=== PATIENT | female | born 1945 | race African-American/Black ===

== ENCOUNTER 2019-02-18 10:30 | Emergency (ER) | payer MEDICARE ==
[2019-02-18 11:00] LABS: Basophils % (Auto) 0.2 % (0.0-1.8); Eosinophils % (Auto) 0.5 % (0.0-4.3); Hematocrit 39.7 % (30.3-42.9); Hemoglobin 13.5 gm/dl (10.1-14.3); Lymphocytes # (Auto) 1.3 K/mm3 (1.2-5.4); Lymphocytes % (Auto) 14.5 % (13.4-35.0); Mean Corpuscular HGB Conc 34 % (30-34); Mean Corpuscular Volume 84 fl (79-97); Monocytes % (Auto) 11.5 % (0.0-7.3); Platelet Count 219 K/mm3 (140-440); Red Blood Count 4.75 M/mm3 (3.65-5.03); Red Cell Distribution Width 13.1 % (13.2-15.2)
--- NOTE | 2019-02-18 11:09 | XRay Report ---
AP CHEST: HISTORY: Lightheadedness, dizziness No recent comparison. Heart size and pulmonary vessels are within normal limits. Normal mediastinal contour. Pulmonary markings at the lung bases are slightly prominent, left greater than right. Although this could represent chronic interstitial changes, mild bibasilar infiltrates or atelectasis could be considered. The upper lung zones are clear. No pleural effusion or pneumothorax. The bony structures are intact but mildly demineralized. IMPRESSION: Slightly prominent pulmonary markings at the lung bases as described above. Please correlate with the patient's clinical presentation.
[2019-02-18 11:23] LABS: Alanine Aminotransferase 12 units/L (7-56); BUN/Creatinine Ratio 16; Blood Urea Nitrogen 14 mg/dL (7-17); Calcium 9.3 mg/dL (8.4-10.2); Hemolysis Index 3
[2019-02-18] MEDS ORDERED: ANTIVERT PO ONE (11:25)
[2019-02-18] MEDS ORDERED: VALIUM PO ONE (12:00)
--- NOTE | 2019-02-18 12:09 | Emergency Department Report ---
ED General Adult HPI - General Chief complaint: Dizziness Stated complaint: DIZZY/VOMIT Time Seen by Provider: 02/18/19 10:59 Source: patient Mode of arrival: Wheelchair Limitations: Language Barrier - History of Present Illness Initial comments: Patient presents to the emergency department with her daughter for dizziness. Per the daughter the patient has a history of being dizzy and has been diagnosed with Mnire's disease. Last week the dizziness has become worse and they were at an imaging center today to get a CT of the head when the patient almost passed out from the dizziness. Patient was seen by her primary care physician last week. Patient denies any headache, weakness. She describes the dizziness as the room is spinning and relieve when not moving. At rest no dizziness. Patient's daughter translates for the patient. Patient denies chest pain, shortness of breath, or abdominal pain -: Gradual Consistency: constant Improves with: rest Worsens with: movement Associated Symptoms: denies other symptoms Treatments Prior to Arrival: none - Related Data Previous Rx's Medication Instructions Recorded Last Taken Type Meclizine [Antivert] 25 mg PO TID PRN #30 tablet 02/18/19 Unknown Rx Allergies Allergy/AdvReac Type Severity Reaction Status Date / Time No Known Allergies Allergy Unverified 11/11/14 21:00 ED Review of Systems ROS: Stated complaint: DIZZY/VOMIT Other details as noted in HPI Comment: All other systems reviewed and negative Constitutional: denies: chills, fever Eyes: denies: eye pain, eye discharge, vision change ENT: denies: ear pain, throat pain Respiratory: denies: cough, shortness of breath, wheezing Cardiovascular: denies: chest pain, palpitations Endocrine: no symptoms reported Gastrointestinal: denies: abdominal pain, nausea, diarrhea Genitourinary: denies: urgency, dysuria, discharge Musculoskeletal: denies: back pain, joint swelling, arthralgia Skin: denies: rash, lesions Neurological: vertigo. denies: headache, weakness, paresthesias Psychiatric: denies: anxiety, depression Hematological/Lymphatic: denies: easy bleeding, easy bruising ED Past Medical Hx - Past Medical History Hx Hypertension: Yes Hx Diabetes: Yes - Surgical History Past Surgical History?: No - Social History Smoking Status: Never Smoker Substance Use Type: None - Medications Home Medications: Home Medications Medication Instructions Recorded Confirmed Last Taken Type Meclizine [Antivert] 25 mg PO TID PRN #30 tablet 02/18/19 Unknown Rx ED Physical Exam - General Limitations: Language Barrier General appearance: alert, in no apparent distress - Head Head exam: Present: atraumatic, normocephalic - Eye Eye exam: Present: normal appearance, PERRL, EOMI - ENT ENT exam: Present: mucous membranes moist - Neck Neck exam: Present: normal inspection - Respiratory Respiratory exam: Present: normal lung sounds bilaterally. Absent: respiratory distress, wheezes, rales - Cardiovascular Cardiovascular Exam: Present: regular rate, normal rhythm. Absent: systolic murmur, diastolic murmur, rubs, gallop - GI/Abdominal GI/Abdominal exam: Present: soft, normal bowel sounds. Absent: distended, tenderness - Extremities Exam Extremities exam: Present: normal inspection - Back Exam Back exam: Present: normal inspection - Neurological Exam Neurological exam: Present: alert, oriented X3, CN II-XII intact, other (able to re-create symptoms with rapid eye and head movement). Absent: motor sensory deficit - Psychiatric Psychiatric exam: Present: normal affect, normal mood - Skin Skin exam: Present: warm, dry, intact, normal color. Absent: rash ED Course Vital Signs 02/18/19 02/18/19 02/18/19 10:59 11:15 11:30 Temperature 97.8 F Pulse Rate 74 84 88 Respiratory 19 21 24 Rate Blood Pressure 152/77 137/71 Blood Pressure 122/78 [Left] O2 Sat by Pulse 99 95 95 Oximetry 02/18/19 02/18/19 02/18/19 11:45 12:00 12:15 Temperature Pulse Rate 81 89 89 Respiratory 15 23 21 Rate Blood Pressure 137/71 141/70 141/70 Blood Pressure [Left] O2 Sat by Pulse 96 96 Oximetry 02/18/19 12:30 Temperature Pulse Rate 88 Respiratory 22 Rate Blood Pressure 138/72 Blood Pressure [Left] O2 Sat by Pulse 98 Oximetry ED Medical Decision Making - Lab Data Result diagrams: 02/18/19 10:55 02/18/19 10:50 Lab Results 02/18/19 02/18/19 Range/Units 10:50 10:55 WBC 8.9 (4.5-11.0) K/mm3 RBC 4.75 (3.65-5.03) M/mm3 Hgb 13.5 (10.1-14.3) gm/dl Hct 39.7 (30.3-42.9) % MCV 84 (79-97) fl MCH 28 (28-32) pg MCHC 34 (30-34) % RDW 13.1 L (13.2-15.2) % Plt Count 219 (140-440) K/mm3 Lymph % (Auto) 14.5 (13.4-35.0) % Wise % (Auto) 11.5 H (0.0-7.3) % Eos % (Auto) 0.5 (0.0-4.3) % Baso % (Auto) 0.2 (0.0-1.8) % Lymph # 1.3 (1.2-5.4) K/mm3 Wise # 1.0 H (0.0-0.8) K/mm3 Eos # 0.0 (0.0-0.4) K/mm3 Baso # 0.0 (0.0-0.1) K/mm3 Seg Neutrophils % 73.3 H (40.0-70.0) % Seg Neutrophils # 6.5 (1.8-7.7) K/mm3 Sodium 135 L (137-145) mmol/L Potassium 3.9 (3.6-5.0) mmol/L Chloride 96.5 L (98-107) mmol/L Carbon Dioxide 24 (22-30) mmol/L Anion Gap 18 mmol/L BUN 14 (7-17) mg/dL Creatinine 0.9 (0.7-1.2) mg/dL Estimated GFR > 60 ml/min BUN/Creatinine Ratio 16 % Glucose 252 H (65-100) mg/dL Calcium 9.3 (8.4-10.2) mg/dL Total Bilirubin 1.20 (0.1-1.2) mg/dL AST 15 (5-40) units/L ALT 12 (7-56) units/L Alkaline Phosphatase 76 (35-129) units/L Troponin T < 0.010 (0.00-0.029) ng/mL Total Protein 9.1 H (6.3-8.2) g/dL Albumin 4.0 (3.9-5) g/dL Albumin/Globulin Ratio 0.8 % - EKG Data -: EKG Interpreted by Ne EKG shows normal: sinus rhythm Rate: normal - Radiology Data Radiology results: report reviewed Critical care attestation.: If time is entered above; I have spent that time in minutes in the direct care of this critically ill patient, excluding procedure time. ED Disposition Clinical Impression: Vertigo Disposition: DC-01 TO HOME OR SELFCARE Is pt being admited?: No Does the pt Need Aspirin: No Condition: Stable Instructions: Vertigo (ED) Additional Instructions: return if worse Referrals: CAROL PIERCE MD [Primary Care Provider] - 3-5 Days Time of Disposition: 14:14
--- NOTE | 2019-02-18 14:05 | Cat Scan Report ---
PROCEDURE: CT HEAD/BRAIN WO CON TECHNIQUE: CT of the head was performed without intravenous contrast. HISTORY: dizziness COMPARISONS: None FINDINGS: The ventricles are normal in position and shape. The ventricles are nondilated. No intracranial hemorrhage, mass, mass effect or evidence of acute ischemic infarct. The basilar cisterns are patent. The paranasal sinuses are clear. The mastoid air cells are clear. The orbits are intact. The calvarium is intact. No extracranial soft tissue swelling. IMPRESSION: No acute intracranial abnormality. This document is electronically signed by Emmy Prater., February 18 2019 02:03:09 PM ET
[2019-02-18] MEDS ORDERED: ULTRAM PO ONE ×2 (14:12)
[2019-02-18 14:18] VITALS: BP 127/67
== END 2019-02-18 14:26 | disposition home or self-care (01) ==
LOC: ED 10:30
DX: R42 Dizziness and giddiness (principal); I10 Essential (primary) hypertension; E11.9 Type 2 diabetes mellitus without complications
CPT/HCPCS: 36415; 70450; 71045; 80053; 82962; 84484; 85025; 93005; 93010; 99284

== ENCOUNTER 2019-02-20 13:34 | Inpatient (IN) | payer MEDICARE ==
[2019-02-20] MEDS ORDERED: NACL 0.9% 1000 ML IV ONE (14:06)
[2019-02-20] MEDS ORDERED: TYLENOL PO STA (14:08)
--- NOTE | 2019-02-20 14:09 | Emergency Department Report ---
ED General Adult HPI - General Chief complaint: Weakness Stated complaint: WEAKNESS/FEVER Time Seen by Provider: 02/20/19 13:55 Source: patient, family, EMS (ems notes not available at time of chart dictation), RN notes reviewed Mode of arrival: Stretcher Limitations: Language Barrier (the patient requested that her daughter translate), Physical Limitation - History of Present Illness Initial comments: Primary care Dr.: Dr. Lauren This is a 73-year-old female, presenting to the emergency room, with her daughter, with a complaint of weakness, fever, coughs, malaise and fatigue. Patient reported that symptoms have been going on and off for about a week. She was recently seen here at this emergency room for dizziness and weakness, and had a fairly thorough evaluation. Her daughter reports the patient appears to clinically worsen within the past 24-48 hours. The patient complains of nontraumatic chronic left-sided shoulder pain. She makes no complaint of headache or neck pain, she denies abdominal pain, and she denies urinary symptoms. The patient is 2 weeks she described a qualitative nature of her symptoms, exacerbating or relieving factor As per her daughter, positive fever, weakness, cough, malaise and fatigue. -: Gradual Quality: other Consistency: other Improves with: other Worsens with: other Associated Symptoms: other - Related Data Previous Rx's Medication Instructions Recorded Last Taken Type Meclizine [Antivert] 25 mg PO TID PRN #30 tablet 02/18/19 Unknown Rx traMADol [Ultram] 50 mg PO Q6HR PRN #24 tablet 02/18/19 Unknown Rx Allergies Allergy/AdvReac Type Severity Reaction Status Date / Time No Known Allergies Allergy Unverified 11/11/14 21:00 ED Review of Systems ROS: Stated complaint: WEAKNESS/FEVER Other details as noted in HPI Comment: Unobtainable due to pts medical conditions Constitutional: fever, malaise, weakness ENT: congestion Respiratory: shortness of breath Cardiovascular: dyspnea on exertion Gastrointestinal: denies: nausea, vomiting Genitourinary: denies: dysuria Musculoskeletal: arthralgia, myalgia Skin: denies: lesions Neurological: weakness ED Past Medical Hx - Past Medical History Hx Hypertension: Yes Hx Diabetes: Yes - Social History Smoking Status: Never Smoker Substance Use Type: None - Medications Home Medications: Home Medications Medication Instructions Recorded Confirmed Last Taken Type Meclizine [Antivert] 25 mg PO TID PRN #30 tablet 02/18/19 Unknown Rx traMADol [Ultram] 50 mg PO Q6HR PRN #24 tablet 02/18/19 Unknown Rx ED Physical Exam - General Limitations: Language Barrier General appearance: alert, anxious, in distress - Head Head exam: Present: atraumatic, normocephalic - Eye Eye exam: Present: normal appearance, EOMI - ENT ENT exam: Present: mucous membranes dry - Neck Neck exam: Present: normal inspection, full ROM. Absent: tenderness, meningismus - Respiratory Respiratory exam: Present: respiratory distress, decreased breath sounds. Absent: wheezes, rales, rhonchi, stridor - Cardiovascular Cardiovascular Exam: Present: normal rhythm, tachycardia, normal heart sounds. Absent: systolic murmur, diastolic murmur, rubs, gallop - GI/Abdominal GI/Abdominal exam: Present: soft. Absent: distended, tenderness, guarding, rebound, rigid, pulsatile mass - Extremities Exam Extremities exam: Present: normal inspection, full ROM, other (2+ pulses noted in the bilateral upper, lower extremities. Compartments soft. No long bony tenderness. The pelvis is stable.). Absent: pedal edema, joint swelling, calf tenderness - Back Exam Back exam: Present: normal inspection, full ROM. Absent: tenderness, CVA tenderness (R), paraspinal tenderness, vertebral tenderness - Neurological Exam Neurological exam: Present: alert, other (Extraocular movements intact. Tongue midline. No facial droop. Facial sensation intact to light touch in the V1, V2, V3 distribution bilaterally. 5 and 5 strength in 4 extremities.. Sensation is intact to light touch in 4 extremities.). Absent: motor sensory deficit - Psychiatric Psychiatric exam: Present: anxious - Skin Skin exam: Present: warm, dry, intact, normal color. Absent: rash ED Course Vital Signs 02/20/19 14:20 Temperature 99.4 F Pulse Rate 100 H Respiratory 24 Rate Blood Pressure 133/72 [Left] O2 Sat by Pulse 87 Oximetry ED Medical Decision Making - Lab Data Result diagrams: 02/20/19 14:12 02/20/19 14:11 Vital Signs 02/20/19 14:20 Temperature 99.4 F Pulse Rate 100 H Respiratory 24 Rate Blood Pressure 133/72 [Left] O2 Sat by Pulse 87 Oximetry Lab Results 02/20/19 02/20/19 02/20/19 Range/Units 14:11 14:11 14:12 WBC 13.6 H (4.5-11.0) K/mm3 RBC 4.50 (3.65-5.03) M/mm3 Hgb 12.5 (10.1-14.3) gm/dl Hct 37.5 (30.3-42.9) % MCV 83 (79-97) fl MCH 28 (28-32) pg MCHC 33 (30-34) % RDW 12.8 L (13.2-15.2) % Plt Count 258 (140-440) K/mm3 Add Manual Diff Complete Total Counted 100 Seg Neuts % (Manual) 84.0 H (40.0-70.0) % Band Neutrophils % 0 % Lymphocytes % (Manual) 9.0 L (13.4-35.0) % Reactive Lymphs % (Man) 0 % Monocytes % (Manual) 7.0 (0.0-7.3) % Eosinophils % (Manual) 0 (0.0-4.3) % Basophils % (Manual) 0 (0.0-1.8) % Metamyelocytes % 0 % Myelocytes % 0 % Promyelocytes % 0 % Blast Cells % 0 % Nucleated RBC % Not Reportable Seg Neutrophils # Man 11.4 H (1.8-7.7) K/mm3 Band Neutrophils # 0.0 K/mm3 Lymphocytes # (Manual) 1.2 (1.2-5.4) K/mm3 Abs React Lymphs (Man) 0.0 K/mm3 Monocytes # (Manual) 1.0 H (0.0-0.8) K/mm3 Eosinophils # (Manual) 0.0 (0.0-0.4) K/mm3 Basophils # (Manual) 0.0 (0.0-0.1) K/mm3 Metamyelocytes # 0.0 K/mm3 Myelocytes # 0.0 K/mm3 Promyelocytes # 0.0 K/mm3 Blast Cells # 0.0 K/mm3 WBC Morphology Not Reportable Hypersegmented Neuts Not Reportable Hyposegmented Neuts Not Reportable Hypogranular Neuts Not Reportable Smudge Cells Not Reportable Toxic Granulation Not Reportable Toxic Vacuolation Not Reportable Dohle Bodies Not Reportable Pelger-Huet Anomaly Not Reportable Jenniffer Rods Not Reportable Platelet Estimate Appears normal Clumped Platelets Not Reportable Plt Clumps, EDTA Not Reportable Large Platelets Not Reportable Giant Platelets Not Reportable Platelet Satelliting Not Reportable Plt Morphology Comment Not Reportable RBC Morphology Not Reportable Dimorphic RBCs Not Reportable Polychromasia Rare Hypochromasia Not Reportable Poikilocytosis Not Reportable Anisocytosis Few Microcytosis Not Reportable Macrocytosis Not Reportable Spherocytes Not Reportable Pappenheimer Bodies Not Reportable Sickle Cells Not Reportable Target Cells Not Reportable Tear Drop Cells Not Reportable Ovalocytes Rare Helmet Cells Not Reportable [place] Bodies Not Reportable Gallion Rings Not Reportable [place] Cells Not Reportable Bite Cells Not Reportable Crenated Cell Not Reportable Elliptocytes Not Reportable Acanthocytes (Spur) Not Reportable Rouleaux Not Reportable Hemoglobin C Crystals Not Reportable Schistocytes Not Reportable Malaria parasites Not Reportable Raul Bodies Not Reportable Hem Pathologist Commnt No PT 15.2 H (12.2-14.9) Sec. INR 1.13 (0.87-1.13) APTT 35.1 (24.2-36.6) Sec. Sodium 132 L (137-145) mmol/L Potassium 4.1 (3.6-5.0) mmol/L Chloride 90.5 L (98-107) mmol/L Carbon Dioxide 26 (22-30) mmol/L Anion Gap 20 mmol/L BUN 18 H (7-17) mg/dL Creatinine 0.8 (0.7-1.2) mg/dL Estimated GFR > 60 ml/min BUN/Creatinine Ratio 23 % Glucose 250 H (65-100) mg/dL Lactic Acid (0.7-2.0) mmol/L Calcium 9.4 (8.4-10.2) mg/dL Magnesium 1.70 (1.7-2.3) mg/dL Total Bilirubin 1.70 H (0.1-1.2) mg/dL AST 13 (5-40) units/L ALT 8 (7-56) units/L Alkaline Phosphatase 77 (35-129) units/L Total Creatine Kinase 41 (30-135) units/L Troponin T < 0.010 (0.00-0.029) ng/mL Total Protein 9.1 H (6.3-8.2) g/dL Albumin 3.8 L (3.9-5) g/dL Albumin/Globulin Ratio 0.7 % 02/20/19 Range/Units 14:12 WBC (4.5-11.0) K/mm3 RBC (3.65-5.03) M/mm3 Hgb (10.1-14.3) gm/dl Hct (30.3-42.9) % MCV (79-97) fl MCH (28-32) pg MCHC (30-34) % RDW (13.2-15.2) % Plt Count (140-440) K/mm3 Add Manual Diff Total Counted Seg Neuts % (Manual) (40.0-70.0) % Band Neutrophils % % Lymphocytes % (Manual) (13.4-35.0) % Reactive Lymphs % (Man) % Monocytes % (Manual) (0.0-7.3) % Eosinophils % (Manual) (0.0-4.3) % Basophils % (Manual) (0.0-1.8) % Metamyelocytes % % Myelocytes % % Promyelocytes % % Blast Cells % % Nucleated RBC % Seg Neutrophils # Man (1.8-7.7) K/mm3 Band Neutrophils # K/mm3 Lymphocytes # (Manual) (1.2-5.4) K/mm3 Abs React Lymphs (Man) K/mm3 Monocytes # (Manual) (0.0-0.8) K/mm3 Eosinophils # (Manual) (0.0-0.4) K/mm3 Basophils # (Manual) (0.0-0.1) K/mm3 Metamyelocytes # K/mm3 Myelocytes # K/mm3 Promyelocytes # K/mm3 Blast Cells # K/mm3 WBC Morphology Hypersegmented Neuts Hyposegmented Neuts Hypogranular Neuts Smudge Cells Toxic Granulation Toxic Vacuolation Dohle Bodies Pelger-Huet Anomaly Jenniffer Rods Platelet Estimate Clumped Platelets Plt Clumps, EDTA Large Platelets Giant Platelets Platelet Satelliting Plt Morphology Comment RBC Morphology Dimorphic RBCs Polychromasia Hypochromasia Poikilocytosis Anisocytosis Microcytosis Macrocytosis Spherocytes Pappenheimer Bodies Sickle Cells Target Cells Tear Drop Cells Ovalocytes Helmet Cells [place] Bodies Gallion Rings [place] Cells Bite Cells Crenated Cell Elliptocytes Acanthocytes (Spur) Rouleaux Hemoglobin C Crystals Schistocytes Malaria parasites Raul Bodies Hem Pathologist Commnt PT (12.2-14.9) Sec. INR (0.87-1.13) APTT (24.2-36.6) Sec. Sodium (137-145) mmol/L Potassium (3.6-5.0) mmol/L Chloride (98-107) mmol/L Carbon Dioxide (22-30) mmol/L Anion Gap mmol/L BUN (7-17) mg/dL Creatinine (0.7-1.2) mg/dL Estimated GFR ml/min BUN/Creatinine Ratio % Glucose (65-100) mg/dL Lactic Acid 1.20 (0.7-2.0) mmol/L Calcium (8.4-10.2) mg/dL Magnesium (1.7-2.3) mg/dL Total Bilirubin (0.1-1.2) mg/dL AST (5-40) units/L ALT (7-56) units/L Alkaline Phosphatase (35-129) units/L Total Creatine Kinase (30-135) units/L Troponin T (0.00-0.029) ng/mL Total Protein (6.3-8.2) g/dL Albumin (3.9-5) g/dL Albumin/Globulin Ratio % - Radiology Data Radiology results: report reviewed, image reviewed Print Report Referring Physician: SHAKIR LANCE Patient Name: SHERITA LOWE Date of : 1945 Sex: Female Report Date: 2019-02-20 Report Status: Finalized Findings [facility] [address] [place] [address] XRay Report Signed Patient: SHERITA LOWE MR#: [id number] : 1945 Acct:[id number] Age/Sex: 73 / F ADM Date: 02/20/19 Loc: ED Attending Dr: Ordering Physician: SHAKIR LANCE MD Date of Service: 02/20/19 Procedure(s): XR chest 1V ap Accession Number(s): [id number] cc: SHAKIR LANCE MD Fluoro Time In Minutes: Single view chest: Compared to 02/18/19. History: Fever. Hypoxia. Findings: Normal cardiomediastinal silhouette. Trachea is midline. Ill-defined linear density retrocardiac region left lower lobe. Very faint ill-defined density right perihilar area. Not seen in the previous study. Impression: Ill-defined densities probably suggestive of pneumonitis, segmental or discoid atelectasis. If clinically indicated CT scan may be advised. Transcribed By: PTP Dictated By: ANNA PRIDE MD Electronically Authenticated By: ANNA PRIDE MD Signed Date/Time: 02/20/19 0020 - Medical Decision Making Differential diagnosis, including not limited to: Pneumonia, bacteremia, urinary tract infection, viremia Assessment and plan: 73-year-old female, ill-appearing, tachycardic, hypoxic, with leukocytosis, concerning for community acquired pneumonia. Patient resusc itated according to the sepsis pathway. Looking clinically improved on 2 L of nasal cannula oxygen, IV fluids and supportive care. Patient will be admitted to the medical service, under the care of Dr. Kolb, after we have discussed the case. Extensive discussion had with daughter regarding goals of care and advanced directives, currently, patient appears to be full code. Critical care attestation.: If time is entered above; I have spent that time in minutes in the direct care of this critically ill patient, excluding procedure time. ED Disposition Clinical Impression: Systemic inflammatory response syndrome (SIRS) Disposition: DC- OP ADMIT IP TO THIS HOSP Is pt being admited?: Yes Does the pt Need Aspirin: No Condition: Fair
[2019-02-20 14:31] LABS: Hematocrit 37.5 % (30.3-42.9); Hemoglobin 12.5 gm/dl (10.1-14.3); Mean Corpuscular HGB Conc 33 % (30-34); Mean Corpuscular Volume 83 fl (79-97); Platelet Count 258 K/mm3 (140-440); Red Cell Distribution Width 12.8 % (13.2-15.2)
[2019-02-20 14:52] LABS: INR 1.13 (0.87-1.13)
[2019-02-20 14:53] LABS: Partial Thromboplastin Time 35.1 Sec. (24.2-36.6)
[2019-02-20 14:58] LABS: Alanine Aminotransferase 8 units/L (7-56); Albumin 3.8 g/dL (3.9-5); BUN/Creatinine Ratio 23; Blood Urea Nitrogen 18 mg/dL (7-17); Calcium 9.4 mg/dL (8.4-10.2); Hemolysis Index 0
--- NOTE | 2019-02-20 15:01 | XRay Report ---
Single view chest: Compared to 02/18/19. History: Fever. Hypoxia. Findings: Normal cardiomediastinal silhouette. Trachea is midline. Ill-defined linear density retrocardiac region left lower lobe. Very faint ill-defined density right perihilar area. Not seen in the previous study. Impression: Ill-defined densities probably suggestive of pneumonitis, segmental or discoid atelectasis. If clinically indicated CT scan may be advised.
[2019-02-20] MEDS: ZITHROMAX 500 MG in NACL 0.9% 250ML 250 ML IV SCH (15:10)
--- NOTE | 2019-02-20 15:14 | History and Physical Report ---
History of Present Illness Chief complaint: He is very weak, and has fever History of present illness: 73 YO Male with HTN, DM, Severe Malnutrition presents to ED for evaluation. Pt has difficulty speaking Peruvian, and wishes to have his daughter translate for his. As per daughter, the patient has experienced progressive weakness, fever, over the past week with progressive symptoms over the same time frame. In addit ion, the patient requires increased assistance with activities of daily living. EMS notified, and upon arrival the patient was found to be in distres and transported to [facility]. Pt seen and evaluated in ED and found to have Left Lower Lobe Pneumonia, SIRS, Hyponatremia, Severe Malnutritions, and clinical findings consistent with Multiple Myeloma. Pt admitted to [facility] and initiated on Pneumonia protocol. No prior admissions for review. All listed medication reviewed at time of admission. No reports of Trauma, BRBPR, Productive cough, unilateral leg swelling, Skin Rash, Recent foreign travel, Syncope, Vertigo, or known ill contacts. Primary care Dr.: Dr. Lauren Past History Past Medical History: diabetes, hypertension Past Surgical History: No surgical history, Other (reviewed) Social history: . denies: smoking, alcohol abuse, prescription drug abuse Family history: diabetes, hypertension Medications and Allergies Allergies Allergy/AdvReac Type Severity Reaction Status Date / Time No Known Allergies Allergy Unverified 11/11/14 21:00 Home Medications Medication Instructions Recorded Confirmed Last Taken Type Meclizine [Antivert] 25 mg PO TID PRN #30 tablet 02/18/19 02/20/19 Unknown Rx Amlodipine Besylate [Norvasc] 2.5 mg PO DAILY 02/20/19 02/20/19 Unknown History Ramipril 10 mg PO DAILY 02/20/19 02/20/19 02/19/19 History Sitagliptin Phosphate [Januvia] 50 mg PO DAILY 02/20/19 02/20/19 02/19/19 History Triamter/Hctz 37.5-25 mg 1 tab PO QAM 02/20/19 02/20/19 Unknown History [Maxzide-25] metFORMIN [Glucophage] 500 mg PO BID 02/20/19 02/20/19 02/19/19 History Active Meds: Active Medications Azithromycin 500 mg/ Sodium (Chloride) 250 mls @ 250 mls/hr IV Q24HR CHICHO; Protocol Ceftriaxone Sodium (Rocephin/Ns 2 Gm/100 Ml) 2 gm in 100 mls @ 200 mls/hr IV Q24HR CHICHO; Protocol Review of Systems Constitutional: fever, fatigue, weakness, lethargy, no weight gain Ears, nose, mouth and throat: no ear pain, no ear discharge, no tinnitis, no decreased hearing, no nose pain, no nasal congestion Breasts: no change in shape, no mass Cardiovascular: no chest pain, no orthopnea, no palpitations, no rapid/irregular heart beat, no edema, no syncope Respiratory: no cough, no cough with sputum, no excessive sputum, no hemoptysis, no shortness of breath Gastrointestinal: no abdominal pain, no nausea, no vomiting, no diarrhea, no constipation Genitourinary Female: no pelvic pain, no flank pain, no menorrhagia, no urinary frequency Rectal: no pain, no incontinence, no bleeding Musculoskeletal: no neck stiffness, no neck pain, no shooting arm pain, no arm numbness/tingling, no low back pain, no shooting leg pain Integumentary: no rash, no pruritis, no redness, no sores, no wounds, no jaundice Neurological: no transient paralysis, no paralysis, no weakness, no parathesias, no numbness, no tingling Psychiatric: no anxiety, no memory loss, no change in sleep habits, no sleep disturbances, no insomnia Endocrine: no cold intolerance, no heat intolerance, no polyphagia, no excessive thirst Hematologic/Lymphatic: no easy bruising, no easy bleeding, no lymphadenopathy, no lymphedema Allergic/Immunologic: no urticaria, no persistent infections, no anaphylaxis Exam - Constitutional Vitals: Temp Pulse Resp BP Pulse Ox 99.4 F 100 H 24 133/72 87 02/20/19 14:20 02/20/19 14:20 02/20/19 14:20 02/20/19 14:20 02/20/19 14:20 General appearance: Present: mild distress, cachectic - EENT Eyes: Present: PERRL ENT: hearing intact, clear oral mucosa - Neck Neck: Present: supple, normal ROM - Respiratory Respiratory effort: normal Respiratory: bilateral: diminished, rales - Cardiovascular Heart Sounds: Present: S1 & S2. Absent: rub, click - Extremities Extremities: pulses symmetrical, No edema Peripheral Pulses: within normal limits - Abdominal General gastrointestinal: Present: soft, non-tender, non-distended, normal bowel sounds Female genitourinary: Present: normal - Integumentary Integumentary: Present: clear, warm, dry - Musculoskeletal Musculoskeletal: generalized weakness - Psychiatric Psychiatric: appropriate mood/affect, intact judgment & insight - Neurologic Neurologic: CNII-XII intact, moves all extremities, no gait normal Results - Labs CBC & Chem 7: 02/20/19 14:12 02/20/19 14:11 Labs: Abnormal lab results 02/20/19 02/20/19 02/20/19 Range/Units 14:11 14:11 14:12 WBC 13.6 H (4.5-11.0) K/mm3 RDW 12.8 L (13.2-15.2) % PT 15.2 H (12.2-14.9) Sec. Sodium 132 L (137-145) mmol/L Chloride 90.5 L (98-107) mmol/L BUN 18 H (7-17) mg/dL Glucose 250 H (65-100) mg/dL Total Bilirubin 1.70 H (0.1-1.2) mg/dL Total Protein 9.1 H (6.3-8.2) g/dL Albumin 3.8 L (3.9-5) g/dL Assessment and Plan - Patient Problems (1) Pneumonia Current Visit: Yes Status: Acute (2) Hyponatremia syndrome Current Visit: Yes Status: Acute Plan to address problem: IVF resuscitation, monitor UOP q shift, repeat BMP (3) Severe malnutrition Current Visit: Yes Status: Acute Plan to address problem: Encourage increased protein intake, dietary supplementation (4) Multiple myeloma Current Visit: Yes Status: Suspected Plan to address problem: Serum/Urine Protein Electrophoresis, Calculate Gamma Gap, B2 Microglobulin, Immunofixation, (5) Systemic inflammatory response syndrome (SIRS) Current Visit: Yes Status: Acute Plan to address problem: IV antibiotic therapy, Urinalysis, chest x ray, CBC, BMP, supportive care. (6) Elevated liver function tests Current Visit: Yes Status: Acute Plan to address problem: repeat CMP, fractionated bilirubin (7) DVT prophylaxis Current Visit: Yes Status: Acute Plan to address problem: SCD to BLE while in bed.
[2019-02-20 15:19] LABS: Basophils % (Manual) 0 % (0.0-1.8); Eosinophils % (Manual) 0 % (0.0-4.3); Total Cells Counted 100
[2019-02-20 15:20] LABS: Anisocytosis Few; Ovalocytes Rare
[2019-02-20] MEDS ORDERED: SODIUM CHLORIDE FLUSH SYRINGE 10 ML IV PRN (16:02)
[2019-02-20] MEDS ORDERED: ZOFRAN IV PRN (16:02)
[2019-02-20] MEDS ORDERED: ANTIVERT PO PRN (16:04)
[2019-02-20] MEDS: ROCEPHIN/NS 2 GM/100 ML 2 GM/100 ML BAG IV SCH (17:15)
[2019-02-20 18:51] LABS: Bilirubin,Urine NEG (Negative); Blood,Urine SM (Negative); Color,Urine Yellow (Yellow); Hyaline Casts,Urine 1 /LPF; Protein,Urine <15 mg/dL mg/dL (Negative)
[2019-02-20] MEDS: NACL 0.45% 1000 ML 1,000 ML IV SCH (20:13)
[2019-02-20] MEDS ORDERED: D50W (25GM) Syringe IV PRN (20:37)
[2019-02-20] MEDS: PEPCID PO SCH (22:09)
[2019-02-20] MEDS: HumaLOG SUB-Q SCH (22:10)
[2019-02-20] MEDS: SODIUM CHLORIDE FLUSH SYRINGE 10 ML IV SCH (22:11)
[2019-02-20 22:21] LABS: Bilirubin,Direct 0.3 mg/dL (0-0.2)
[2019-02-20] MEDS: TYLENOL PO PRN (23:11)
[2019-02-21 05:14] LABS: Basophils % (Auto) 0.1 % (0.0-1.8); Eosinophils # (Auto) 0.1 K/mm3 (0.0-0.4); Hematocrit 35.2 % (30.3-42.9); Hemoglobin 11.6 gm/dl (10.1-14.3); Lymphocytes # (Auto) 1.3 K/mm3 (1.2-5.4); Lymphocytes % (Auto) 12.2 % (13.4-35.0); Mean Corpuscular HGB Conc 33 % (30-34); Mean Corpuscular Volume 85 fl (79-97); Monocytes % (Auto) 9.2 % (0.0-7.3); Platelet Count 217 K/mm3 (140-440); Red Blood Count 4.16 M/mm3 (3.65-5.03); Red Cell Distribution Width 13.1 % (13.2-15.2)
[2019-02-21 05:33] LABS: BUN/Creatinine Ratio 23; Blood Urea Nitrogen 16 mg/dL (7-17); Calcium 8.8 mg/dL (8.4-10.2); Hemolysis Index 13
[2019-02-21] MEDS ORDERED: NON-FORMULARY (Ramipril [Ramipril] 10 MG) PO SCH (10:00)
[2019-02-21] MEDS: ROCEPHIN/NS 2 GM/100 ML 2 GM/100 ML BAG IV SCH (10:19)
[2019-02-21] MEDS: NORVASC PO SCH (10:20)
[2019-02-21] MEDS: PEPCID PO SCH (10:21)
[2019-02-21] MEDS: MAXZIDE-25 PO SCH (10:24)
[2019-02-21] MEDS: ZESTRIL PO SCH (10:25)
[2019-02-21] MEDS: SODIUM CHLORIDE FLUSH SYRINGE 10 ML IV SCH (10:26)
[2019-02-21] MEDS: ZITHROMAX 500 MG in NACL 0.9% 250ML 250 ML IV SCH (10:30)
[2019-02-21] MEDS: HumaLOG SUB-Q SCH ×3 (10:32→17:01)
--- NOTE | 2019-02-21 15:35 | Progress Note ---
Assessment and Plan Assessment and plan: 73f c/o left shoulder pain x2 weeks, denies trauma -pw weakness, decrease po, and cough x3 days Diagnosis CAP/ sepsis discoid atelectasis seen on cxr Left shoulder pain MM Moderate malnutrition Transaminitis Plan IV abx, sepsis protocol -cxr may be scarring or atelectasis?, obtain CT chest Obtain Left shoulder xray DVT ppx lovenox History Interval history: Review of systems Constitutional: No fevers, complaining of generalized weakness and malaise CVS: No chest pain, no orthopnea, no pedal edema GI: No abdominal pain, no diarrhea, no vomiting, no constipation Respiratory: Complaining of cough, nonproductive Hospitalist Physical - Physical exam Narrative exam: General.: Appears ill, mild distress, nontoxic HEENT: Moist mucous membranes, extraocular muscles intact, no lymphadenopathy Neck: supple Cardiac: S1-S2 heard Lungs: Rhonchi heard Abdomen: soft , nontender, nondistended, bowel sounds positive Extremities: no edema clubbing or cyanosis Skin: no rash or lesions Neurologic: no gross focal deficits Psych: calm, and cooperative - Constitutional Vitals: Temp Pulse Resp BP Pulse Ox 97.9 F 75 20 138/63 97 02/21/19 07:23 02/21/19 07:23 02/21/19 07:23 02/21/19 10:25 02/21/19 07:23 General appearance: Present: mild distress, cachectic Results - Labs CBC & Chem 7: 02/21/19 04:45 02/21/19 04:45 Labs: Laboratory Last Values WBC 10.5 K/mm3 (4.5-11.0) 02/21/19 04:45 RBC 4.16 M/mm3 (3.65-5.03) 02/21/19 04:45 Hgb 11.6 gm/dl (10.1-14.3) 02/21/19 04:45 Hct 35.2 % (30.3-42.9) 02/21/19 04:45 MCV 85 fl (79-97) 02/21/19 04:45 MCH 28 pg (28-32) 02/21/19 04:45 MCHC 33 % (30-34) 02/21/19 04:45 RDW 13.1 % (13.2-15.2) L 02/21/19 04:45 Plt Count 217 K/mm3 (140-440) 02/21/19 04:45 Lymph % (Auto) 12.2 % (13.4-35.0) L 02/21/19 04:45 [place] % (Auto) 9.2 % (0.0-7.3) H 02/21/19 04:45 Eos % (Auto) 1.0 % (0.0-4.3) 02/21/19 04:45 Baso % (Auto) 0.1 % (0.0-1.8) 02/21/19 04:45 Lymph # 1.3 K/mm3 (1.2-5.4) 02/21/19 04:45 [place] # 1.0 K/mm3 (0.0-0.8) H 02/21/19 04:45 Eos # 0.1 K/mm3 (0.0-0.4) 02/21/19 04:45 Baso # 0.0 K/mm3 (0.0-0.1) 02/21/19 04:45 Add Manual Diff Complete 02/20/19 14:12 Total Counted 100 02/20/19 14:12 Seg Neutrophils % 77.5 % (40.0-70.0) H 02/21/19 04:45 Seg Neuts % (Manual) 84.0 % (40.0-70.0) H 02/20/19 14:12 Band Neutrophils % 0 % 02/20/19 14:12 Lymphocytes % (Manual) 9.0 % (13.4-35.0) L 02/20/19 14:12 Reactive Lymphs % (Man) 0 % 02/20/19 14:12 Monocytes % (Manual) 7.0 % (0.0-7.3) 02/20/19 14:12 Eosinophils % (Manual) 0 % (0.0-4.3) 02/20/19 14:12 Basophils % (Manual) 0 % (0.0-1.8) 02/20/19 14:12 Metamyelocytes % 0 % 02/20/19 14:12 Myelocytes % 0 % 02/20/19 14:12 Promyelocytes % 0 % 02/20/19 14:12 Blast Cells % 0 % 02/20/19 14:12 Nucleated RBC % Not Reportable 02/20/19 14:12 Seg Neutrophils # 8.1 K/mm3 (1.8-7.7) H 02/21/19 04:45 Seg Neutrophils # Man 11.4 K/mm3 (1.8-7.7) H 02/20/19 14:12 Band Neutrophils # 0.0 K/mm3 02/20/19 14:12 Lymphocytes # (Manual) 1.2 K/mm3 (1.2-5.4) 02/20/19 14:12 Abs React Lymphs (Man) 0.0 K/mm3 02/20/19 14:12 Monocytes # (Manual) 1.0 K/mm3 (0.0-0.8) H 02/20/19 14:12 Eosinophils # (Manual) 0.0 K/mm3 (0.0-0.4) 02/20/19 14:12 Basophils # (Manual) 0.0 K/mm3 (0.0-0.1) 02/20/19 14:12 Metamyelocytes # 0.0 K/mm3 02/20/19 14:12 Myelocytes # 0.0 K/mm3 02/20/19 14:12 Promyelocytes # 0.0 K/mm3 02/20/19 14:12 Blast Cells # 0.0 K/mm3 02/20/19 14:12 WBC Morphology Not Reportable 02/20/19 14:12 Hypersegmented Neuts Not Reportable 02/20/19 14:12 Hyposegmented Neuts Not Reportable 02/20/19 14:12 Hypogranular Neuts Not Reportable 02/20/19 14:12 Smudge Cells Not Reportable 02/20/19 14:12 Toxic Granulation Not Reportable 02/20/19 14:12 Toxic Vacuolation Not Reportable 02/20/19 14:12 Dohle Bodies Not Reportable 02/20/19 14:12 Pelger-Huet Anomaly Not Reportable 02/20/19 14:12 Jenniffer Rods Not Reportable 02/20/19 14:12 Platelet Estimate Appears normal 02/20/19 14:12 Clumped Platelets Not Reportable 02/20/19 14:12 Plt Clumps, EDTA Not Reportable 02/20/19 14:12 Large Platelets Not Reportable 02/20/19 14:12 Giant Platelets Not Reportable 02/20/19 14:12 Platelet Satelliting Not Reportable 02/20/19 14:12 Plt Morphology Comment Not Reportable 02/20/19 14:12 RBC Morphology Not Reportable 02/20/19 14:12 Dimorphic RBCs Not Reportable 02/20/19 14:12 Polychromasia Rare 02/20/19 14:12 Hypochromasia Not Reportable 02/20/19 14:12 Poikilocytosis Not Reportable 02/20/19 14:12 Anisocytosis Few 02/20/19 14:12 Microcytosis Not Reportable 02/20/19 14:12 Macrocytosis Not Reportable 02/20/19 14:12 Spherocytes Not Reportable 02/20/19 14:12 Pappenheimer Bodies Not Reportable 02/20/19 14:12 Sickle Cells Not Reportable 02/20/19 14:12 Target Cells Not Reportable 02/20/19 14:12 Tear Drop Cells Not Reportable 02/20/19 14:12 Ovalocytes Rare 02/20/19 14:12 Helmet Cells Not Reportable 02/20/19 14:12 [place] Bodies Not Reportable 02/20/19 14:12 [place] Rings Not Reportable 02/20/19 14:12 Rosina Cells Not Reportable 02/20/19 14:12 Bite Cells Not Reportable 02/20/19 14:12 Crenated Cell Not Reportable 02/20/19 14:12 Elliptocytes Not Reportable 02/20/19 14:12 Acanthocytes (Spur) Not Reportable 02/20/19 14:12 Rouleaux Not Reportable 02/20/19 14:12 Hemoglobin C Crystals Not Reportable 02/20/19 14:12 Schistocytes Not Reportable 02/20/19 14:12 Malaria parasites Not Reportable 02/20/19 14:12 Raul Bodies Not Reportable 02/20/19 14:12 Hem Pathologist Commnt No 02/20/19 14:12 PT 15.2 Sec. (12.2-14.9) H 02/20/19 14:11 INR 1.13 (0.87-1.13) 02/20/19 14:11 APTT 35.1 Sec. (24.2-36.6) 02/20/19 14:11 Sodium 139 mmol/L (137-145) D 02/21/19 04:45 Potassium 3.7 mmol/L (3.6-5.0) 02/21/19 04:45 Chloride 102.3 mmol/L (98-107) 02/21/19 04:45 Carbon Dioxide 24 mmol/L (22-30) 02/21/19 04:45 Anion Gap 16 mmol/L 02/21/19 04:45 BUN 16 mg/dL (7-17) 02/21/19 04:45 Creatinine 0.7 mg/dL (0.7-1.2) 02/21/19 04:45 Estimated GFR > 60 ml/min 02/21/19 04:45 BUN/Creatinine Ratio 23 % 02/21/19 04:45 Glucose 154 mg/dL (65-100) H 02/21/19 04:45 POC Glucose 131 (70-105) H 02/21/19 11:41 Lactic Acid 1.20 mmol/L (0.7-2.0) 02/20/19 21:13 Calcium 8.8 mg/dL (8.4-10.2) 02/21/19 04:45 Magnesium 1.70 mg/dL (1.7-2.3) 02/20/19 14:11 Total Bilirubin 0.90 mg/dL (0.1-1.2) 02/20/19 21:13 Direct Bilirubin 0.3 mg/dL (0-0.2) H 02/20/19 21:13 Indirect Bilirubin 0.6 mg/dL 02/20/19 21:13 AST 13 units/L (5-40) 02/20/19 14:11 ALT 8 units/L (7-56) 02/20/19 14:11 Alkaline Phosphatase 77 units/L (35-129) 02/20/19 14:11 Total Creatine Kinase 41 units/L (30-135) 02/20/19 14:11 Troponin T < 0.010 ng/mL (0.00-0.029) 02/20/19 14:11 Total Protein 9.1 g/dL (6.3-8.2) H 02/20/19 14:11 Albumin 3.8 g/dL (3.9-5) L 02/20/19 14:11 Albumin/Globulin Ratio 0.7 % 02/20/19 14:11 Urine Color Yellow (Yellow) 02/20/19 17:53 Urine Turbidity Slightly-cloudy (Clear) 02/20/19 17:53 Urine pH 6.0 (5.0-7.0) 02/20/19 17:53 Ur Specific [place] 1.006 (1.003-1.030) 02/20/19 17:53 Urine Protein <15 mg/dl mg/dL (Negative) 02/20/19 17:53 Urine Glucose (UA) 50 mg/dL (Negative) 02/20/19 17:53 Urine Ketones Neg mg/dL (Negative) 02/20/19 17:53 Urine Blood Sm (Negative) 02/20/19 17:53 Urine Nitrite Neg (Negative) 02/20/19 17:53 Urine Bilirubin Neg (Negative) 02/20/19 17:53 Urine Urobilinogen 2.0 mg/dL (<2.0) 02/20/19 17:53 Ur Leukocyte Esterase Sm (Negative) 02/20/19 17:53 Urine WBC (Auto) 5.0 /HPF (0.0-6.0) 02/20/19 17:53 Urine RBC (Auto) 1.0 /HPF (0.0-6.0) 02/20/19 17:53 U Epithel Cells (Auto) 2.0 /HPF (0-13.0) 02/20/19 17:53 Hyaline Casts 1 /LPF 02/20/19 17:53 Active Medications - Current Medications Current Medications: Generic Name Dose Route Start Last Admin Trade Name Freq PRN Reason Stop Dose Admin Acetaminophen 650 mg 02/20/19 16:02 02/20/19 23:11 Tylenol PO 650 mg Q4H PRN Administration Pain MILD(1-3)/Fever >100.5/ALLEN Amlodipine Besylate 2.5 mg 02/21/19 10:00 02/21/19 10:20 Norvasc PO 2.5 mg QDAY CHICHO Administration Azithromycin 500 mg 02/22/19 10:00 Zithromax PO 02/24/19 10:01 QDAY CH[facility]HO Dextrose 50 ml 02/20/19 20:37 D50w (25gm) Syringe IV PRN PRN Hypoglycemia Famotidine 10 mg 02/20/19 22:00 02/21/19 10:21 Pepcid PO 10 mg BID CH[facility]HO Administration Ceftriaxone Sodium 2 gm in 100 mls @ 200 mls/hr 02/20/19 15:00 02/21/19 10:19 Rocephin/Ns 2 Gm/100 Ml IV 200 mls/hr Q24HR [facility] Administration Protocol Sodium Chloride 1,000 mls @ 42 mls/hr 02/20/19 17:00 02/20/19 20:13 Nacl 0.45% 1000 Ml IV 42 mls/hr DIRECT [facility] Administration Insulin Human Lispro 0 unit 02/20/19 22:00 02/21/19 10:32 Humalog SUB-Q Not Given ACHS CH[facility]HO Protocol Lisinopril 20 mg 02/21/19 10:00 02/21/19 10:25 Zestril PO 20 mg QDAY CH[facility]HO Administration Meclizine HCl 25 mg 02/20/19 16:04 Antivert PO TID PRN Vertigo Ondansetron HCl 4 mg 02/20/19 16:02 Zofran IV Q8H PRN Nausea And Vomiting Sodium Chloride 10 ml 02/20/19 22:00 02/21/19 10:26 Sodium Chloride Flush Syringe 10 Ml IV 10 ml BID CH[facility]HO Administration Sodium Chloride 10 ml 02/20/19 16:02 Sodium Chloride Flush Syringe 10 Ml IV PRN PRN LINE FLUSH Triamterene/HCTZ 1 each 02/21/19 10:00 02/21/19 10:24 Maxzide-25 PO 1 each QAM CH[facility]HO Administration Nutrition/Malnutrition Assess - Dietary Evaluation Nutrition/Malnutrition Findings: Nutrition Notes Start: 02/21/19 14:17 Freq: Status: Active Protocol: Document 02/21/19 14:17 RM (Rec: 02/21/19 14:37 RM [id number]) Nutrition Notes Need for Assessment generated from: Low BMI Initial or Follow up Assessment Current Diagnosis Diabetes,Hypertension Other Pertinent Diagnosis SIRS, Pneu Current Diet Cardiac Labs/Tests Reviewed Pertinent Medications Reviewed Height 5 ft 2 in Weight 45.359 kg Usual Body Weight 45.45 kg [place] Body Weight (kg) 50.00 BMI 18.3 Subjective/Other Information Screened for low BMI. Pt only speaks a little Kinyarwanda. Daughter spoke on behalf of pt. 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 Stated pt also had some soup today. Admitted to pt poor appetite and nausea but has vomiting only once. Declined regular ONS d/t similarity to milk. Admitted pt constipation. Stated UBW has been 100 lbs for years. Noted slight temporal wasting. 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 No Is Patient Ambulatory and/or Out of Bed No REE-([facility]-confined to bed) 1094.772 Kcal/Kg value to use for calculation 31 Approximate Energy Requirements Using 1406 kcal/Kg Calculation Used for Recommendations Kcal/kg Additional Notes Protein Needs: 54-68g (1.2-1. 5g/kg) Fluid Needs: 1 ml/kcal Nutrition Intervention Change Diet Order: Cardiac/Consistent CHO Add Supplement/Snack (indicate name/kcal Ensure Clear 1 daily /protein ) Provides kCal: 240 Provides Protein (gm) 8 Goal #1 Meet at least 75% of calorie and protein needs via PO and ONS intakes Anticipated Discharge Needs: Cardiac/Consistent CHO Follow-Up By: 02/24/19 Additional Comments Follow for PO and ONS intakes
[2019-02-21] MEDS: TYLENOL PO PRN (17:09)
[2019-02-21] MEDS: NACL 0.45% 1000 ML 1,000 ML IV SCH (18:26)
[2019-02-22] MEDS: HumaLOG SUB-Q SCH ×5 (00:11→22:04)
[2019-02-22] MEDS: SODIUM CHLORIDE FLUSH SYRINGE 10 ML IV SCH ×3 (01:12→21:25)
[2019-02-22] MEDS: PEPCID PO SCH ×3 (01:12→21:24)
[2019-02-22] MEDS: ZITHROMAX PO SCH (09:00)
[2019-02-22] MEDS: NORVASC PO SCH (09:00)
[2019-02-22] MEDS: ZESTRIL PO SCH (09:00)
[2019-02-22] MEDS: MAXZIDE-25 PO SCH (09:00)
[2019-02-22] MEDS: ROCEPHIN/NS 2 GM/100 ML 2 GM/100 ML BAG IV SCH (09:01)
--- NOTE | 2019-02-22 10:33 | Progress Note ---
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 Left shoulder xray and CT neg, awaiting MR shoulder to r/o rotator cuff injury DVT ppx lovenox History Interval history: Review of systems Constitutional: No fevers, complaining of generalized weakness and malaise CVS: No chest pain, no orthopnea, no pedal edema GI: No abdominal pain, no diarrhea, no vomiting, no constipation Respiratory: Complaining of cough, nonproductive Hospitalist Physical - Physical exam Narrative exam: General.: Appears ill, mild distress, nontoxic HEENT: Moist mucous membranes, extraocular muscles intact, no lymphadenopathy Neck: supple Cardiac: S1-S2 heard Lungs: Rhonchi heard Abdomen: soft , nontender, nondistended, bowel sounds positive Extremities: no edema clubbing or cyanosis Skin: no rash or lesions Neurologic: no gross focal deficits Psych: calm, and cooperative - Constitutional Vitals: Temp Pulse Resp BP Pulse Ox 98.6 F 90 18 119/66 96 02/22/19 07:24 02/22/19 09:00 02/22/19 07:24 02/22/19 09:00 02/22/19 09:19 General appearance: Present: mild distress, cachectic Results - Labs CBC & Chem 7: 02/21/19 04:45 02/21/19 04:45 Labs: Laboratory Last Values WBC 10.5 K/mm3 (4.5-11.0) 02/21/19 04:45 RBC 4.16 M/mm3 (3.65-5.03) 02/21/19 04:45 Hgb 11.6 gm/dl (10.1-14.3) 02/21/19 04:45 Hct 35.2 % (30.3-42.9) 02/21/19 04:45 MCV 85 fl (79-97) 02/21/19 04:45 MCH 28 pg (28-32) 02/21/19 04:45 MCHC 33 % (30-34) 02/21/19 04:45 RDW 13.1 % (13.2-15.2) L 02/21/19 04:45 Plt Count 217 K/mm3 (140-440) 02/21/19 04:45 Lymph % (Auto) 12.2 % (13.4-35.0) L 02/21/19 04:45 [place] % (Auto) 9.2 % (0.0-7.3) H 02/21/19 04:45 Eos % (Auto) 1.0 % (0.0-4.3) 02/21/19 04:45 Baso % (Auto) 0.1 % (0.0-1.8) 02/21/19 04:45 Lymph # 1.3 K/mm3 (1.2-5.4) 02/21/19 04:45 [place] # 1.0 K/mm3 (0.0-0.8) H 02/21/19 04:45 Eos # 0.1 K/mm3 (0.0-0.4) 02/21/19 04:45 Baso # 0.0 K/mm3 (0.0-0.1) 02/21/19 04:45 Add Manual Diff Complete 02/20/19 14:12 Total Counted 100 02/20/19 14:12 Seg Neutrophils % 77.5 % (40.0-70.0) H 02/21/19 04:45 Seg Neuts % (Manual) 84.0 % (40.0-70.0) H 02/20/19 14:12 Band Neutrophils % 0 % 02/20/19 14:12 Lymphocytes % (Manual) 9.0 % (13.4-35.0) L 02/20/19 14:12 Reactive Lymphs % (Man) 0 % 02/20/19 14:12 Monocytes % (Manual) 7.0 % (0.0-7.3) 02/20/19 14:12 Eosinophils % (Manual) 0 % (0.0-4.3) 02/20/19 14:12 Basophils % (Manual) 0 % (0.0-1.8) 02/20/19 14:12 Metamyelocytes % 0 % 02/20/19 14:12 Myelocytes % 0 % 02/20/19 14:12 Promyelocytes % 0 % 02/20/19 14:12 Blast Cells % 0 % 02/20/19 14:12 Nucleated RBC % Not Reportable 02/20/19 14:12 Seg Neutrophils # 8.1 K/mm3 (1.8-7.7) H 02/21/19 04:45 Seg Neutrophils # Man 11.4 K/mm3 (1.8-7.7) H 02/20/19 14:12 Band Neutrophils # 0.0 K/mm3 02/20/19 14:12 Lymphocytes # (Manual) 1.2 K/mm3 (1.2-5.4) 02/20/19 14:12 Abs React Lymphs (Man) 0.0 K/mm3 02/20/19 14:12 Monocytes # (Manual) 1.0 K/mm3 (0.0-0.8) H 02/20/19 14:12 Eosinophils # (Manual) 0.0 K/mm3 (0.0-0.4) 02/20/19 14:12 Basophils # (Manual) 0.0 K/mm3 (0.0-0.1) 02/20/19 14:12 Metamyelocytes # 0.0 K/mm3 02/20/19 14:12 Myelocytes # 0.0 K/mm3 02/20/19 14:12 Promyelocytes # 0.0 K/mm3 02/20/19 14:12 Blast Cells # 0.0 K/mm3 02/20/19 14:12 WBC Morphology Not Reportable 02/20/19 14:12 Hypersegmented Neuts Not Reportable 02/20/19 14:12 Hyposegmented Neuts Not Reportable 02/20/19 14:12 Hypogranular Neuts Not Reportable 02/20/19 14:12 Smudge Cells Not Reportable 02/20/19 14:12 Toxic Granulation Not Reportable 02/20/19 14:12 Toxic Vacuolation Not Reportable 02/20/19 14:12 Dohle Bodies Not Reportable 02/20/19 14:12 Pelger-Huet Anomaly Not Reportable 02/20/19 14:12 Jenniffer Rods Not Reportable 02/20/19 14:12 Platelet Estimate Appears normal 02/20/19 14:12 Clumped Platelets Not Reportable 02/20/19 14:12 Plt Clumps, EDTA Not Reportable 02/20/19 14:12 Large Platelets Not Reportable 02/20/19 14:12 Giant Platelets Not Reportable 02/20/19 14:12 Platelet Satelliting Not Reportable 02/20/19 14:12 Plt Morphology Comment Not Reportable 02/20/19 14:12 RBC Morphology Not Reportable 02/20/19 14:12 Dimorphic RBCs Not Reportable 02/20/19 14:12 Polychromasia Rare 02/20/19 14:12 Hypochromasia Not Reportable 02/20/19 14:12 Poikilocytosis Not Reportable 02/20/19 14:12 Anisocytosis Few 02/20/19 14:12 Microcytosis Not Reportable 02/20/19 14:12 Macrocytosis Not Reportable 02/20/19 14:12 Spherocytes Not Reportable 02/20/19 14:12 Pappenheimer Bodies Not Reportable 02/20/19 14:12 Sickle Cells Not Reportable 02/20/19 14:12 Target Cells Not Reportable 02/20/19 14:12 Tear Drop Cells Not Reportable 02/20/19 14:12 Ovalocytes Rare 02/20/19 14:12 Helmet Cells Not Reportable 02/20/19 14:12 [place]aud-[place]ur Bodies Not Reportable 02/20/19 14:12 [place] Rings Not Reportable 02/20/19 14:12 [place] Cells Not Reportable 02/20/19 14:12 Bite Cells Not Reportable 02/20/19 14:12 Crenated Cell Not Reportable 02/20/19 14:12 Elliptocytes Not Reportable 02/20/19 14:12 Acanthocytes (Spur) Not Reportable 02/20/19 14:12 Rouleaux Not Reportable 02/20/19 14:12 Hemoglobin C Crystals Not Reportable 02/20/19 14:12 Schistocytes Not Reportable 02/20/19 14:12 Malaria parasites Not Reportable 02/20/19 14:12 Raul Bodies Not Reportable 02/20/19 14:12 Hem Pathologist Commnt No 02/20/19 14:12 PT 15.2 Sec. (12.2-14.9) H 02/20/19 14:11 INR 1.13 (0.87-1.13) 02/20/19 14:11 APTT 35.1 Sec. (24.2-36.6) 02/20/19 14:11 Sodium 139 mmol/L (137-145) D 02/21/19 04:45 Potassium 3.7 mmol/L (3.6-5.0) 02/21/19 04:45 Chloride 102.3 mmol/L (98-107) 02/21/19 04:45 Carbon Dioxide 24 mmol/L (22-30) 02/21/19 04:45 Anion Gap 16 mmol/L 02/21/19 04:45 BUN 16 mg/dL (7-17) 02/21/19 04:45 Creatinine 0.7 mg/dL (0.7-1.2) 02/21/19 04:45 Estimated GFR > 60 ml/min 02/21/19 04:45 BUN/Creatinine Ratio 23 % 02/21/19 04:45 Glucose 154 mg/dL (65-100) H 02/21/19 04:45 POC Glucose 117 (70-105) H 02/22/19 07:31 Lactic Acid 1.20 mmol/L (0.7-2.0) 02/20/19 21:13 Calcium 8.8 mg/dL (8.4-10.2) 02/21/19 04:45 Magnesium 1.70 mg/dL (1.7-2.3) 02/20/19 14:11 Total Bilirubin 0.90 mg/dL (0.1-1.2) 02/20/19 21:13 Direct Bilirubin 0.3 mg/dL (0-0.2) H 02/20/19 21:13 Indirect Bilirubin 0.6 mg/dL 02/20/19 21:13 AST 13 units/L (5-40) 02/20/19 14:11 ALT 8 units/L (7-56) 02/20/19 14:11 Alkaline Phosphatase 77 units/L (35-129) 02/20/19 14:11 Total Creatine Kinase 41 units/L (30-135) 02/20/19 14:11 Troponin T < 0.010 ng/mL (0.00-0.029) 02/20/19 14:11 Total Protein 9.1 g/dL (6.3-8.2) H 02/20/19 14:11 Albumin 3.8 g/dL (3.9-5) L 02/20/19 14:11 Albumin/Globulin Ratio 0.7 % 02/20/19 14:11 Urine Color Yellow (Yellow) 02/20/19 17:53 Urine Turbidity Slightly-cloudy (Clear) 02/20/19 17:53 Urine pH 6.0 (5.0-7.0) 02/20/19 17:53 Ur Specific [place] 1.006 (1.003-1.030) 02/20/19 17:53 Urine Protein <15 mg/dl mg/dL (Negative) 02/20/19 17:53 Urine Glucose (UA) 50 mg/dL (Negative) 02/20/19 17:53 Urine Ketones Neg mg/dL (Negative) 02/20/19 17:53 Urine Blood Sm (Negative) 02/20/19 17:53 Urine Nitrite Neg (Negative) 02/20/19 17:53 Urine Bilirubin Neg (Negative) 02/20/19 17:53 Urine Urobilinogen 2.0 mg/dL (<2.0) 02/20/19 17:53 Ur Leukocyte Esterase Sm (Negative) 02/20/19 17:53 Urine WBC (Auto) 5.0 /HPF (0.0-6.0) 02/20/19 17:53 Urine RBC (Auto) 1.0 /HPF (0.0-6.0) 02/20/19 17:53 U Epithel Cells (Auto) 2.0 /HPF (0-13.0) 02/20/19 17:53 Hyaline Casts 1 /LPF 02/20/19 17:53 Active Medications - Current Medications Current Medications: Generic Name Dose Route Start Last Admin Trade Name Freq PRN Reason Stop Dose Admin Acetaminophen 650 mg 02/20/19 16:02 02/21/19 17:09 Tylenol PO 650 mg Q4H PRN Administration Pain MILD(1-3)/Fever >100.5/ALLEN Amlodipine Besylate 2.5 mg 02/21/19 10:00 02/22/19 09:00 Norvasc PO 2.5 mg QDAY CHICHO Administration Azithromycin 500 mg 02/22/19 10:00 02/22/19 09:00 Zithromax PO 02/24/19 10:01 500 mg QDAY CHICHO Administration Dextrose 50 ml 02/20/19 20:37 D50w (25gm) Syringe IV PRN PRN Hypoglycemia Enoxaparin Sodium 40 mg 02/22/19 22:00 Lovenox SUB-Q QDAY@2200 CIHCHO Famotidine 10 mg 02/20/19 22:00 02/22/19 08:59 Pepcid PO 10 mg BID CHICHO Administration Guaifenesin 10 ml 02/22/19 10:05 Guaifenesin Dm Syrup PO Q4H PRN Cough Ceftriaxone Sodium 2 gm in 100 mls @ 200 mls/hr 02/20/19 15:00 02/22/19 09:01 Rocephin/Ns 2 Gm/100 Ml IV 200 mls/hr Q24HR CHICHO Administration Protocol Sodium Chloride 1,000 mls @ 42 mls/hr 02/20/19 17:00 02/21/19 18:26 Nacl 0.45% 1000 Ml IV 42 mls/hr DIRECT CHICHO Administration Insulin Human Lispro 0 unit 02/20/19 22:00 02/22/19 09:00 Humalog SUB-Q Not Given ACHS CHICHO Protocol Lisinopril 20 mg 02/21/19 10:00 02/22/19 09:00 Zestril PO 20 mg QDAY CHICHO Administration Meclizine HCl 25 mg 02/20/19 16:04 02/22/19 01:20 Antivert PO 25 mg TID PRN Administration Vertigo Ondansetron HCl 4 mg 02/20/19 16:02 Zofran IV Q8H PRN Nausea And Vomiting Sodium Chloride 10 ml 02/20/19 22:00 02/22/19 09:01 Sodium Chloride Flush Syringe 10 Ml IV 10 ml BID CHICHO Administration Sodium Chloride 10 ml 02/20/19 16:02 Sodium Chloride Flush Syringe 10 Ml IV PRN PRN LINE FLUSH Triamterene/HCTZ 1 each 02/21/19 10:00 02/22/19 09:00 Maxzide-25 PO 1 each QAM CHICHO Administration Nutrition/Malnutrition Assess - Dietary Evaluation Nutrition/Malnutrition Findings: Nutrition Notes Start: 02/21/19 14:17 Freq: Status: Active Protocol: Document 02/21/19 14:17 RM (Rec: 02/21/19 14:37 RM [id number]) Nutrition Notes Need for Assessment generated from: Low BMI Initial or Follow up Assessment Current Diagnosis Diabetes,Hypertension Other Pertinent Diagnosis SIRS, Pneu Current Diet Cardiac Labs/Tests Reviewed Pertinent Medications Reviewed Height 5 ft 2 in Weight 45.359 kg Usual Body Weight 45.45 kg [place] Body Weight (kg) 50.00 BMI 18.3 Subjective/Other Information Screened for low BMI. Pt only speaks a little Upper Sorbian. Daughter spoke on behalf of pt. 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 Stated pt also had some soup today. Admitted to pt poor appetite and nausea but has vomiting only once. Declined regular ONS d/t similarity to milk. Admitted pt constipation. Stated UBW has been 100 lbs for years. Noted slight temporal wasting. 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 No Is Patient Ambulatory and/or Out of Bed No REE-([facility]-confined to bed) 1094.772 Kcal/Kg value to use for calculation 31 Approximate Energy Requirements Using 1406 kcal/Kg Calculation Used for Recommendations Kcal/kg Additional Notes Protein Needs: 54-68g (1.2-1. 5g/kg) Fluid Needs: 1 ml/kcal Nutrition Intervention Change Diet Order: Cardiac/Consistent CHO Add Supplement/Snack (indicate name/kcal Ensure Clear 1 daily /protein ) Provides kCal: 240 Provides Protein (gm) 8 Goal #1 Meet at least 75% of calorie and protein needs via PO and ONS intakes Anticipated Discharge Needs: Cardiac/Consistent CHO Follow-Up By: 02/24/19 Additional Comments Follow for PO and ONS intakes
--- NOTE | 2019-02-22 14:39 | XRay Report ---
PROCEDURE: XR SHOULDER 2+V LT TECHNIQUE: 3 views left shoulder HISTORY: left shoulder pain COMPARISONS: None FINDINGS: Osteopenia. Clavicle intact. AC joint normal alignment without significant degenerative change. Gleno humeral joint normal alignment without significant degenerative change. Proximal humerus intact. IMPRESSION: Osteopenia. Otherwise normal for age.. This document is electronically signed by Morgan Irizarry MD., Feb 22 2019 02:36:58 PM ET
[2019-02-22] MEDS: NACL 0.45% 1000 ML 1,000 ML IV SCH ×2 (17:53→21:25)
[2019-02-22] MEDS: LOVENOX SUB-Q SCH (21:24)
[2019-02-23] MEDS: HumaLOG SUB-Q SCH ×4 (08:21→22:43)
[2019-02-23] MEDS: ROCEPHIN/NS 2 GM/100 ML 2 GM/100 ML BAG IV SCH (10:44)
[2019-02-23] MEDS: NORVASC PO SCH (10:45)
[2019-02-23] MEDS: ZESTRIL PO SCH (10:46)
[2019-02-23] MEDS: MAXZIDE-25 PO SCH (10:46)
[2019-02-23] MEDS: PEPCID PO SCH ×2 (10:46→21:44)
[2019-02-23] MEDS: SODIUM CHLORIDE FLUSH SYRINGE 10 ML IV SCH ×2 (10:47→22:44)
[2019-02-23] MEDS: ZITHROMAX PO SCH (10:47)
--- NOTE | 2019-02-23 15:05 | Progress Note ---
Assessment and Plan Assessment and plan: 73f c/o left shoulder pain x2 weeks, denies trauma -pw weakness, decrease po, and cough x3 days Diagnosis CAP/ sepsis discoid atelectasis seen on cxr Left shoulder pain MM Moderate malnutrition Transaminitis Plan IV abx, sepsis protocol -cxr may be scarring or atelectasis?, ct chest report still pending, reported to CORPORATE LEGAL INTERN and supervisor lathing Left shoulder xray and CT neg, awaiting MR shoulder to r/o rotator cuff injury DVT ppx lovenox History Interval history: Review of systems Constitutional: No fevers, complaining of generalized weakness and malaise CVS: No chest pain, no orthopnea, no pedal edema GI: No abdominal pain, no diarrhea, no vomiting, no constipation Respiratory: Complaining of cough, nonproductive Hospitalist Physical - Physical exam Narrative exam: General.: Appears ill, mild distress, nontoxic HEENT: Moist mucous membranes, extraocular muscles intact, no lymphadenopathy Neck: supple Cardiac: S1-S2 heard Lungs: Rhonchi heard Abdomen: soft , nontender, nondistended, bowel sounds positive Extremities: no edema clubbing or cyanosis Left shoulder decreased ROm 2/2 pain Skin: no rash or lesions Neurologic: no gross focal deficits Psych: calm, and cooperative - Constitutional Vitals: Temp Pulse Resp BP Pulse Ox 98.2 F 83 18 104/58 97 02/23/19 13:13 02/23/19 13:13 02/23/19 13:13 02/23/19 13:13 02/23/19 13:13 General appearance: Present: mild distress, cachectic Results - Labs CBC & Chem 7: 02/21/19 04:45 02/21/19 04:45 Labs: Laboratory Last Values WBC 10.5 K/mm3 (4.5-11.0) 02/21/19 04:45 RBC 4.16 M/mm3 (3.65-5.03) 02/21/19 04:45 Hgb 11.6 gm/dl (10.1-14.3) 02/21/19 04:45 Hct 35.2 % (30.3-42.9) 02/21/19 04:45 MCV 85 fl (79-97) 02/21/19 04:45 MCH 28 pg (28-32) 02/21/19 04:45 MCHC 33 % (30-34) 02/21/19 04:45 RDW 13.1 % (13.2-15.2) L 02/21/19 04:45 Plt Count 217 K/mm3 (140-440) 02/21/19 04:45 Lymph % (Auto) 12.2 % (13.4-35.0) L 02/21/19 04:45 [place] % (Auto) 9.2 % (0.0-7.3) H 02/21/19 04:45 Eos % (Auto) 1.0 % (0.0-4.3) 02/21/19 04:45 Baso % (Auto) 0.1 % (0.0-1.8) 02/21/19 04:45 Lymph # 1.3 K/mm3 (1.2-5.4) 02/21/19 04:45 [place] # 1.0 K/mm3 (0.0-0.8) H 02/21/19 04:45 Eos # 0.1 K/mm3 (0.0-0.4) 02/21/19 04:45 Baso # 0.0 K/mm3 (0.0-0.1) 02/21/19 04:45 Add Manual Diff Complete 02/20/19 14:12 Total Counted 100 02/20/19 14:12 Seg Neutrophils % 77.5 % (40.0-70.0) H 02/21/19 04:45 Seg Neuts % (Manual) 84.0 % (40.0-70.0) H 02/20/19 14:12 Band Neutrophils % 0 % 02/20/19 14:12 Lymphocytes % (Manual) 9.0 % (13.4-35.0) L 02/20/19 14:12 Reactive Lymphs % (Man) 0 % 02/20/19 14:12 Monocytes % (Manual) 7.0 % (0.0-7.3) 02/20/19 14:12 Eosinophils % (Manual) 0 % (0.0-4.3) 02/20/19 14:12 Basophils % (Manual) 0 % (0.0-1.8) 02/20/19 14:12 Metamyelocytes % 0 % 02/20/19 14:12 Myelocytes % 0 % 02/20/19 14:12 Promyelocytes % 0 % 02/20/19 14:12 Blast Cells % 0 % 02/20/19 14:12 Nucleated RBC % Not Reportable 02/20/19 14:12 Seg Neutrophils # 8.1 K/mm3 (1.8-7.7) H 02/21/19 04:45 Seg Neutrophils # Man 11.4 K/mm3 (1.8-7.7) H 02/20/19 14:12 Band Neutrophils # 0.0 K/mm3 02/20/19 14:12 Lymphocytes # (Manual) 1.2 K/mm3 (1.2-5.4) 02/20/19 14:12 Abs React Lymphs (Man) 0.0 K/mm3 02/20/19 14:12 Monocytes # (Manual) 1.0 K/mm3 (0.0-0.8) H 02/20/19 14:12 Eosinophils # (Manual) 0.0 K/mm3 (0.0-0.4) 02/20/19 14:12 Basophils # (Manual) 0.0 K/mm3 (0.0-0.1) 02/20/19 14:12 Metamyelocytes # 0.0 K/mm3 02/20/19 14:12 Myelocytes # 0.0 K/mm3 02/20/19 14:12 Promyelocytes # 0.0 K/mm3 02/20/19 14:12 Blast Cells # 0.0 K/mm3 02/20/19 14:12 WBC Morphology Not Reportable 02/20/19 14:12 Hypersegmented Neuts Not Reportable 02/20/19 14:12 Hyposegmented Neuts Not Reportable 02/20/19 14:12 Hypogranular Neuts Not Reportable 02/20/19 14:12 Smudge Cells Not Reportable 02/20/19 14:12 Toxic Granulation Not Reportable 02/20/19 14:12 Toxic Vacuolation Not Reportable 02/20/19 14:12 Dohle Bodies Not Reportable 02/20/19 14:12 Pelger-Huet Anomaly Not Reportable 02/20/19 14:12 Jenniffer Rods Not Reportable 02/20/19 14:12 Platelet Estimate Appears normal 02/20/19 14:12 Clumped Platelets Not Reportable 02/20/19 14:12 Plt Clumps, EDTA Not Reportable 02/20/19 14:12 Large Platelets Not Reportable 02/20/19 14:12 Giant Platelets Not Reportable 02/20/19 14:12 Platelet Satelliting Not Reportable 02/20/19 14:12 Plt Morphology Comment Not Reportable 02/20/19 14:12 RBC Morphology Not Reportable 02/20/19 14:12 Dimorphic RBCs Not Reportable 02/20/19 14:12 Polychromasia Rare 02/20/19 14:12 Hypochromasia Not Reportable 02/20/19 14:12 Poikilocytosis Not Reportable 02/20/19 14:12 Anisocytosis Few 02/20/19 14:12 Microcytosis Not Reportable 02/20/19 14:12 Macrocytosis Not Reportable 02/20/19 14:12 Spherocytes Not Reportable 02/20/19 14:12 Pappenheimer Bodies Not Reportable 02/20/19 14:12 Sickle Cells Not Reportable 02/20/19 14:12 Target Cells Not Reportable 02/20/19 14:12 Tear Drop Cells Not Reportable 02/20/19 14:12 Ovalocytes Rare 02/20/19 14:12 Helmet Cells Not Reportable 02/20/19 14:12 [place] Bodies Not Reportable 02/20/19 14:12 [place] Rings Not Reportable 02/20/19 14:12 [place] Cells Not Reportable 02/20/19 14:12 Bite Cells Not Reportable 02/20/19 14:12 Crenated Cell Not Reportable 02/20/19 14:12 Elliptocytes Not Reportable 02/20/19 14:12 Acanthocytes (Spur) Not Reportable 02/20/19 14:12 Rouleaux Not Reportable 02/20/19 14:12 Hemoglobin C Crystals Not Reportable 02/20/19 14:12 Schistocytes Not Reportable 02/20/19 14:12 Malaria parasites Not Reportable 02/20/19 14:12 Raul Bodies Not Reportable 02/20/19 14:12 Hem Pathologist Commnt No 02/20/19 14:12 PT 15.2 Sec. (12.2-14.9) H 02/20/19 14:11 INR 1.13 (0.87-1.13) 02/20/19 14:11 APTT 35.1 Sec. (24.2-36.6) 02/20/19 14:11 Sodium 139 mmol/L (137-145) D 02/21/19 04:45 Potassium 3.7 mmol/L (3.6-5.0) 02/21/19 04:45 Chloride 102.3 mmol/L (98-107) 02/21/19 04:45 Carbon Dioxide 24 mmol/L (22-30) 02/21/19 04:45 Anion Gap 16 mmol/L 02/21/19 04:45 BUN 16 mg/dL (7-17) 02/21/19 04:45 Creatinine 0.7 mg/dL (0.7-1.2) 02/21/19 04:45 Estimated GFR > 60 ml/min 02/21/19 04:45 BUN/Creatinine Ratio 23 % 02/21/19 04:45 Glucose 154 mg/dL (65-100) H 02/21/19 04:45 POC Glucose 166 (70-105) H 02/23/19 11:48 Lactic Acid 1.20 mmol/L (0.7-2.0) 02/20/19 21:13 Calcium 8.8 mg/dL (8.4-10.2) 02/21/19 04:45 Magnesium 1.70 mg/dL (1.7-2.3) 02/20/19 14:11 Total Bilirubin 0.90 mg/dL (0.1-1.2) 02/20/19 21:13 Direct Bilirubin 0.3 mg/dL (0-0.2) H 02/20/19 21:13 Indirect Bilirubin 0.6 mg/dL 02/20/19 21:13 AST 13 units/L (5-40) 02/20/19 14:11 ALT 8 units/L (7-56) 02/20/19 14:11 Alkaline Phosphatase 77 units/L (35-129) 02/20/19 14:11 Total Creatine Kinase 41 units/L (30-135) 02/20/19 14:11 Troponin T < 0.010 ng/mL (0.00-0.029) 02/20/19 14:11 Total Protein 9.1 g/dL (6.3-8.2) H 02/20/19 14:11 Albumin 3.8 g/dL (3.9-5) L 02/20/19 14:11 Albumin/Globulin Ratio 0.7 % 02/20/19 14:11 Urine Color Yellow (Yellow) 02/20/19 17:53 Urine Turbidity Slightly-cloudy (Clear) 02/20/19 17:53 Urine pH 6.0 (5.0-7.0) 02/20/19 17:53 Ur Specific [place] 1.006 (1.003-1.030) 02/20/19 17:53 Urine Protein <15 mg/dl mg/dL (Negative) 02/20/19 17:53 Urine Glucose (UA) 50 mg/dL (Negative) 02/20/19 17:53 Urine Ketones Neg mg/dL (Negative) 02/20/19 17:53 Urine Blood Sm (Negative) 02/20/19 17:53 Urine Nitrite Neg (Negative) 02/20/19 17:53 Urine Bilirubin Neg (Negative) 02/20/19 17:53 Urine Urobilinogen 2.0 mg/dL (<2.0) 02/20/19 17:53 Ur Leukocyte Esterase Sm (Negative) 02/20/19 17:53 Urine WBC (Auto) 5.0 /HPF (0.0-6.0) 02/20/19 17:53 Urine RBC (Auto) 1.0 /HPF (0.0-6.0) 02/20/19 17:53 U Epithel Cells (Auto) 2.0 /HPF (0-13.0) 02/20/19 17:53 Hyaline Casts 1 /LPF 02/20/19 17:53 Active Medications - Current Medications Current Medications: Generic Name Dose Route Start Last Admin Trade Name Freq PRN Reason Stop Dose Admin Acetaminophen 650 mg 02/20/19 16:02 02/21/19 17:09 Tylenol PO 650 mg Q4H PRN Administration Pain MILD(1-3)/Fever >100.5/ALLEN Amlodipine Besylate 2.5 mg 02/21/19 10:00 02/23/19 10:45 Norvasc PO 2.5 mg QDAY CHICHO Administration Azithromycin 500 mg 02/22/19 10:00 02/23/19 10:47 Zithromax PO 02/24/19 10:01 500 mg QDAY CHICHO Administration Dextrose 50 ml 02/20/19 20:37 D50w (25gm) Syringe IV PRN PRN Hypoglycemia Enoxaparin Sodium 40 mg 02/22/19 22:00 02/22/19 21:24 Lovenox SUB-Q 40 mg QDAY@2200 CHICHO Administration Famotidine 10 mg 02/20/19 22:00 02/23/19 10:46 Pepcid PO 10 mg BID CHICHO Administration Guaifenesin 10 ml 02/22/19 10:05 02/22/19 21:24 Guaifenesin Dm Syrup PO 10 ml Q4H PRN Administration Cough Ceftriaxone Sodium 2 gm in 100 mls @ 200 mls/hr 02/20/19 15:00 02/23/19 10:44 Rocephin/Ns 2 Gm/100 Ml IV 200 mls/hr Q24HR CHICHO Administration Protocol Sodium Chloride 1,000 mls @ 42 mls/hr 02/20/19 17:00 02/22/19 21:25 Nacl 0.45% 1000 Ml IV 42 mls/hr DIRECT CHICHO Administration Insulin Human Lispro 0 unit 02/20/19 22:00 02/23/19 08:21 Humalog SUB-Q 4 unit ACHS CHICHO Administration Protocol Lisinopril 20 mg 02/21/19 10:00 02/23/19 10:46 Zestril PO 20 mg QDAY CHICHO Administration Meclizine HCl 25 mg 02/20/19 16:04 02/22/19 01:20 Antivert PO 25 mg TID PRN Administration Vertigo Ondansetron HCl 4 mg 02/20/19 16:02 Zofran IV Q8H PRN Nausea And Vomiting Sodium Chloride 10 ml 02/20/19 22:00 02/23/19 10:47 Sodium Chloride Flush Syringe 10 Ml IV 10 ml BID [facility] Administration Sodium Chloride 10 ml 02/20/19 16:02 Sodium Chloride Flush Syringe 10 Ml IV PRN PRN LINE FLUSH Triamterene/HCTZ 1 each 02/21/19 10:00 02/23/19 10:46 Maxzide-25 PO 1 each QAM [facility] Administration Nutrition/Malnutrition Assess - Dietary Evaluation Nutrition/Malnutrition Findings: Nutrition Notes Start: 02/21/19 14:17 Freq: Status: Active Protocol: Document 02/21/19 14:17 RM (Rec: 05/03/19 14:37 RM [id number]) Nutrition Notes Need for Assessment generated from: Low BMI Initial or Follow up Assessment Current Diagnosis Diabetes,Hypertension Other Pertinent Diagnosis SIRS, Pneu Current Diet Cardiac Labs/Tests Reviewed Pertinent Medications Reviewed Height 5 ft 2 in Weight 45.359 kg Usual Body Weight 45.45 kg [place] Body Weight (kg) 50.00 BMI 18.3 Subjective/Other Information Screened for low BMI. Pt only speaks a little Romansh. Daughter spoke on behalf of pt. Stated that SCALER pt only ate a few spoonfuls of spanish soup which contains seafood, vegetables, etc and drank some water X 1 week. Stated pt also had some soup today. Admitted to pt poor appetite and nausea but has vomiting only once. Declined regular ONS d/t similarity to milk. Admitted pt constipation. Stated UBW has been 100 lbs for years. Noted slight temporal wasting. Burn Absent Trauma Absent Energy Intake (non-severe) <75% Estimated Energy Requirement >7 days Energy Intake (severe) < or equal to 50% Estimated Energy Requirement > or equal to 5 days Muscle Mass Mild Depletion (non-severe) #1 Nutrition Diagnosis Malnutrition Etiology decreased appetite As Evidenced by Signs and Symptoms slight temporal wasting, pt daughter statement that SCALER pt ate only spoonfuls of soup and drank some water X 1 week Is patient on ventilator? No Is Patient Ambulatory and/or Out of Bed No REE-([facility]-confined to bed) 1094.772 Kcal/Kg value to use for calculation 31 Approximate Energy Requirements Using 1406 kcal/Kg Calculation Used for Recommendations Kcal/kg Additional Notes Protein Needs: 54-68g (1.2-1. 5g/kg) Fluid Needs: 1 ml/kcal Nutrition Intervention Change Diet Order: Cardiac/Consistent CHO Add Supplement/Snack (indicate name/kcal Ensure Clear 1 daily /protein ) Provides kCal: 240 Provides Protein (gm) 8 Goal #1 Meet at least 75% of calorie and protein needs via PO and ONS intakes Anticipated Discharge Needs: Cardiac/Consistent CHO Follow-Up By: 02/24/19 Additional Comments Follow for PO and ONS intakes
--- NOTE | 2019-02-23 17:39 | Cat Scan Report ---
PROCEDURE: CT UPPER EXTREM LT W CON TECHNIQUE: Spiral CT imaging of the left shoulder was obtained during the infusion of IV contrast. C omputer generated sagittal and coronal reconstructions were created and reviewed. HISTORY: left shoulder pain, ?infection COMPARISONS: Plain films left shoulder 02/23/2018 FINDINGS: No fracture or dislocation is visualized. No definite joint effusion is seen. Joint spaces appear to be well maintained. Alignment appears normal. Bone density appears normal. No focal bone loss or abno rmal periosteal reaction is seen that would suggest osteomyelitis. Patchy alveolar densities are incidentally noted in the left upper lobe posteriorly and inferiorly an d also in the superior aspect of the left lower lobe. IMPRESSION: No acute or focal abnormalities of the left shoulder are visualized.. Patchy alveolar densities seen scattered in the left lung as described may represent infiltrates. Cor relation with clinical presentation recommended. This document is electronically signed by Deon Carcamo MD., Feb 23 2019 05:37:16 PM ET
--- NOTE | 2019-02-23 17:51 | Cat Scan Report ---
PROCEDURE: CT chest without contrast. TECHNIQUE: Computerized axial tomography of the chest was performed without contrast material. This study is performed without intravenous contrast and the sensitivity for pathology, including neoplasm s, adenopathy, abscess, pulmonary embolism and aortic dissection, is reduced. CT DOSE LENGTH PRODUCT: 334.6 mGycm HISTORY: Shortness of breath, cough, possible lesion on chest radiograph. COMPARISONS: None. FINDINGS: The trachea and central bronchi appear normal. There are patchy bilateral opacities in both lungs. Th carlyn are located posteriorly in the upper lobes, medially in the right upper lobe and scattered in bot h lower lobes. There are no definite nodules. The findings are most consistent with pneumonia. Clinic al correlation and follow-up imaging to document clearing is recommended. There is a trace amount of left pleural fluid. The thoracic aorta is mildly ectatic. There is atherosclerotic calcification in t he thoracic aorta. There are some enlarged mediastinal lymph nodes. The largest pretracheal lymph nod e measures 1.6 cm x 1.2 cm in cross-section. There are also some aorticopulmonary window lymph nodes. These nodes could be secondary to an inflammatory process. Neoplasia is not excluded and follow-up i maging is recommended. The heart size is normal. The adrenal glands are not enlarged. The thoracic sk [place] appears intact. IMPRESSION: Patchy consolidation in both lungs consistent with pneumonia. Trace amount of left pleur al fluid. Nonspecific enlarged mediastinal lymph nodes. Follow-up imaging recommended. This document is electronically signed by Shawn Arias MD., Feb 23 2019 05:49:08 PM ET
[2019-02-23] MEDS: LOVENOX SUB-Q SCH (21:44)
[2019-02-23] MEDS: TYLENOL PO PRN (21:45)
[2019-02-23] MEDS: NACL 0.45% 1000 ML 1,000 ML IV SCH (21:48)
[2019-02-24] MEDS: HumaLOG SUB-Q SCH ×4 (08:38→22:16)
[2019-02-24] MEDS: TYLENOL PO PRN (09:36)
[2019-02-24] MEDS: NORVASC PO SCH (09:37)
[2019-02-24] MEDS: ZITHROMAX PO SCH (09:37)
[2019-02-24] MEDS: ROCEPHIN/NS 2 GM/100 ML 2 GM/100 ML BAG IV SCH (09:37)
[2019-02-24] MEDS: PEPCID PO SCH ×2 (09:37→21:30)
[2019-02-24] MEDS: ZESTRIL PO SCH (09:37)
[2019-02-24] MEDS: SODIUM CHLORIDE FLUSH SYRINGE 10 ML IV SCH ×2 (09:38→21:30)
[2019-02-24] MEDS: MAXZIDE-25 PO SCH (09:41)
[2019-02-24] MEDS: TESSALON PERLES PO SCH ×2 (14:06→21:30)
[2019-02-24] MEDS: LOVENOX SUB-Q SCH (21:30)
--- NOTE | 2019-02-24 21:53 | Progress Note ---
Assessment and Plan Assessment and plan: 73f c/o left shoulder pain x2 weeks, denies trauma -pw weakness, decrease po, and cough x3 days Diagnosis CAP/ sepsis discoid atelectasis seen on cxr Left shoulder pain, arthritis MM Moderate malnutrition Transaminitis Plan IV abx, sepsis protocol -cxr may be scarring or atelectasis?, ct chest confirms bilat pna, no nodules or masses Left shoulder xray and CT neg, she refused MR shoulder, give empiric steroids and pain meds DVT ppx lovenox History Interval history: Left shoulder pain is improved Review of systems Constitutional: No fevers, complaining of generalized weakness and malaise CVS: No chest pain, no orthopnea, no pedal edema GI: No abdominal pain, no diarrhea, no vomiting, no constipation Respiratory: Complaining of cough, nonproductive Hospitalist Physical - Physical exam Narrative exam: General.: Appears ill, mild distress, nontoxic HEENT: Moist mucous membranes, extraocular muscles intact, no lymphadenopathy Neck: supple Cardiac: S1-S2 heard Lungs: Rhonchi heard Abdomen: soft , nontender, nondistended, bowel sounds positive Extremities: no edema clubbing or cyanosis Left shoulder decreased ROm 2/2 pain Skin: no rash or lesions Neurologic: no gross focal deficits Psych: calm, and cooperative - Constitutional Vitals: Temp Pulse Resp BP Pulse Ox 99.1 F 87 18 131/64 88 02/24/19 20:18 02/24/19 20:18 02/24/19 20:18 02/24/19 20:16 02/24/19 20:18 General appearance: Present: mild distress, cachectic Results - Labs CBC & Chem 7: 02/21/19 04:45 02/21/19 04:45 Labs: Laboratory Last Values WBC 10.5 K/mm3 (4.5-11.0) 02/21/19 04:45 RBC 4.16 M/mm3 (3.65-5.03) 02/21/19 04:45 Hgb 11.6 gm/dl (10.1-14.3) 02/21/19 04:45 Hct 35.2 % (30.3-42.9) 02/21/19 04:45 MCV 85 fl (79-97) 02/21/19 04:45 MCH 28 pg (28-32) 02/21/19 04:45 MCHC 33 % (30-34) 02/21/19 04:45 RDW 13.1 % (13.2-15.2) L 02/21/19 04:45 Plt Count 217 K/mm3 (140-440) 02/21/19 04:45 Lymph % (Auto) 12.2 % (13.4-35.0) L 02/21/19 04:45 [place] % (Auto) 9.2 % (0.0-7.3) H 02/21/19 04:45 Eos % (Auto) 1.0 % (0.0-4.3) 02/21/19 04:45 Baso % (Auto) 0.1 % (0.0-1.8) 02/21/19 04:45 Lymph # 1.3 K/mm3 (1.2-5.4) 02/21/19 04:45 [place] # 1.0 K/mm3 (0.0-0.8) H 02/21/19 04:45 Eos # 0.1 K/mm3 (0.0-0.4) 02/21/19 04:45 Baso # 0.0 K/mm3 (0.0-0.1) 02/21/19 04:45 Add Manual Diff Complete 02/20/19 14:12 Total Counted 100 02/20/19 14:12 Seg Neutrophils % 77.5 % (40.0-70.0) H 02/21/19 04:45 Seg Neuts % (Manual) 84.0 % (40.0-70.0) H 02/20/19 14:12 Band Neutrophils % 0 % 02/20/19 14:12 Lymphocytes % (Manual) 9.0 % (13.4-35.0) L 02/20/19 14:12 Reactive Lymphs % (Man) 0 % 02/20/19 14:12 Monocytes % (Manual) 7.0 % (0.0-7.3) 02/20/19 14:12 Eosinophils % (Manual) 0 % (0.0-4.3) 02/20/19 14:12 Basophils % (Manual) 0 % (0.0-1.8) 02/20/19 14:12 Metamyelocytes % 0 % 02/20/19 14:12 Myelocytes % 0 % 02/20/19 14:12 Promyelocytes % 0 % 02/20/19 14:12 Blast Cells % 0 % 02/20/19 14:12 Nucleated RBC % Not Reportable 02/20/19 14:12 Seg Neutrophils # 8.1 K/mm3 (1.8-7.7) H 02/21/19 04:45 Seg Neutrophils # Man 11.4 K/mm3 (1.8-7.7) H 02/20/19 14:12 Band Neutrophils # 0.0 K/mm3 02/20/19 14:12 Lymphocytes # (Manual) 1.2 K/mm3 (1.2-5.4) 02/20/19 14:12 Abs React Lymphs (Man) 0.0 K/mm3 02/20/19 14:12 Monocytes # (Manual) 1.0 K/mm3 (0.0-0.8) H 02/20/19 14:12 Eosinophils # (Manual) 0.0 K/mm3 (0.0-0.4) 02/20/19 14:12 Basophils # (Manual) 0.0 K/mm3 (0.0-0.1) 02/20/19 14:12 Metamyelocytes # 0.0 K/mm3 02/20/19 14:12 Myelocytes # 0.0 K/mm3 02/20/19 14:12 Promyelocytes # 0.0 K/mm3 02/20/19 14:12 Blast Cells # 0.0 K/mm3 02/20/19 14:12 WBC Morphology Not Reportable 02/20/19 14:12 Hypersegmented Neuts Not Reportable 02/20/19 14:12 Hyposegmented Neuts Not Reportable 02/20/19 14:12 Hypogranular Neuts Not Reportable 02/20/19 14:12 Smudge Cells Not Reportable 02/20/19 14:12 Toxic Granulation Not Reportable 02/20/19 14:12 Toxic Vacuolation Not Reportable 02/20/19 14:12 Dohle Bodies Not Reportable 02/20/19 14:12 Pelger-Huet Anomaly Not Reportable 02/20/19 14:12 Jenniffer Rods Not Reportable 02/20/19 14:12 Platelet Estimate Appears normal 02/20/19 14:12 Clumped Platelets Not Reportable 02/20/19 14:12 Plt Clumps, EDTA Not Reportable 02/20/19 14:12 Large Platelets Not Reportable 02/20/19 14:12 Giant Platelets Not Reportable 02/20/19 14:12 Platelet Satelliting Not Reportable 02/20/19 14:12 Plt Morphology Comment Not Reportable 02/20/19 14:12 RBC Morphology Not Reportable 02/20/19 14:12 Dimorphic RBCs Not Reportable 02/20/19 14:12 Polychromasia Rare 02/20/19 14:12 Hypochromasia Not Reportable 02/20/19 14:12 Poikilocytosis Not Reportable 02/20/19 14:12 Anisocytosis Few 02/20/19 14:12 Microcytosis Not Reportable 02/20/19 14:12 Macrocytosis Not Reportable 02/20/19 14:12 Spherocytes Not Reportable 02/20/19 14:12 Pappenheimer Bodies Not Reportable 02/20/19 14:12 Sickle Cells Not Reportable 02/20/19 14:12 Target Cells Not Reportable 02/20/19 14:12 Tear Drop Cells Not Reportable 02/20/19 14:12 Ovalocytes Rare 02/20/19 14:12 Helmet Cells Not Reportable 02/20/19 14:12 Michaud-Pullman Bodies Not Reportable 02/20/19 14:12 [place] Rings Not Reportable 02/20/19 14:12 Rosina Cells Not Reportable 02/20/19 14:12 Bite Cells Not Reportable 02/20/19 14:12 Crenated Cell Not Reportable 02/20/19 14:12 Elliptocytes Not Reportable 02/20/19 14:12 Acanthocytes (Spur) Not Reportable 02/20/19 14:12 Rouleaux Not Reportable 02/20/19 14:12 Hemoglobin C Crystals Not Reportable 02/20/19 14:12 Schistocytes Not Reportable 02/20/19 14:12 Malaria parasites Not Reportable 02/20/19 14:12 Raul Bodies Not Reportable 02/20/19 14:12 Hem Pathologist Commnt No 02/20/19 14:12 PT 15.2 Sec. (12.2-14.9) H 02/20/19 14:11 INR 1.13 (0.87-1.13) 02/20/19 14:11 APTT 35.1 Sec. (24.2-36.6) 02/20/19 14:11 Sodium 139 mmol/L (137-145) D 02/21/19 04:45 Potassium 3.7 mmol/L (3.6-5.0) 02/21/19 04:45 Chloride 102.3 mmol/L (98-107) 02/21/19 04:45 Carbon Dioxide 24 mmol/L (22-30) 02/21/19 04:45 Anion Gap 16 mmol/L 02/21/19 04:45 BUN 16 mg/dL (7-17) 02/21/19 04:45 Creatinine 0.7 mg/dL (0.7-1.2) 02/21/19 04:45 Estimated GFR > 60 ml/min 02/21/19 04:45 BUN/Creatinine Ratio 23 % 02/21/19 04:45 Glucose 154 mg/dL (65-100) H 02/21/19 04:45 POC Glucose 198 (70-105) H 02/24/19 21:40 Lactic Acid 1.20 mmol/L (0.7-2.0) 02/20/19 21:13 Calcium 8.8 mg/dL (8.4-10.2) 02/21/19 04:45 Magnesium 1.70 mg/dL (1.7-2.3) 02/20/19 14:11 Total Bilirubin 0.90 mg/dL (0.1-1.2) 02/20/19 21:13 Direct Bilirubin 0.3 mg/dL (0-0.2) H 02/20/19 21:13 Indirect Bilirubin 0.6 mg/dL 02/20/19 21:13 AST 13 units/L (5-40) 02/20/19 14:11 ALT 8 units/L (7-56) 02/20/19 14:11 Alkaline Phosphatase 77 units/L (35-129) 02/20/19 14:11 Total Creatine Kinase 41 units/L (30-135) 02/20/19 14:11 Troponin T < 0.010 ng/mL (0.00-0.029) 02/20/19 14:11 Total Protein 9.1 g/dL (6.3-8.2) H 02/20/19 14:11 Albumin 3.8 g/dL (3.9-5) L 02/20/19 14:11 Albumin/Globulin Ratio 0.7 % 02/20/19 14:11 Urine Color Yellow (Yellow) 02/20/19 17:53 Urine Turbidity Slightly-cloudy (Clear) 02/20/19 17:53 Urine pH 6.0 (5.0-7.0) 02/20/19 17:53 Ur Specific [place] 1.006 (1.003-1.030) 02/20/19 17:53 Urine Protein <15 mg/dl mg/dL (Negative) 02/20/19 17:53 Urine Glucose (UA) 50 mg/dL (Negative) 02/20/19 17:53 Urine Ketones Neg mg/dL (Negative) 02/20/19 17:53 Urine Blood Sm (Negative) 02/20/19 17:53 Urine Nitrite Neg (Negative) 02/20/19 17:53 Urine Bilirubin Neg (Negative) 02/20/19 17:53 Urine Urobilinogen 2.0 mg/dL (<2.0) 02/20/19 17:53 Ur Leukocyte Esterase Sm (Negative) 02/20/19 17:53 Urine WBC (Auto) 5.0 /HPF (0.0-6.0) 02/20/19 17:53 Urine RBC (Auto) 1.0 /HPF (0.0-6.0) 02/20/19 17:53 U Epithel Cells (Auto) 2.0 /HPF (0-13.0) 02/20/19 17:53 Hyaline Casts 1 /LPF 02/20/19 17:53 Active Medications - Current Medications Current Medications: Generic Name Dose Route Start Last Admin Trade Name Freq PRN Reason Stop Dose Admin Acetaminophen 650 mg 02/20/19 16:02 02/24/19 09:36 Tylenol PO 650 mg Q4H PRN Administration Pain MILD(1-3)/Fever >100.5/ALLEN Amlodipine Besylate 2.5 mg 02/21/19 10:00 02/24/19 09:37 Norvasc PO 2.5 mg QDAY CHICHO Administration Azithromycin 250 mg 02/25/19 10:00 Zithromax PO 02/26/19 10:01 QDAY CHICHO Benzonatate 100 mg 02/24/19 14:00 02/24/19 21:30 Tessalon Perles PO 100 mg Q8HR CHICHO Administration Dextrose 50 ml 02/20/19 20:37 D50w (25gm) Syringe IV PRN PRN Hypoglycemia Enoxaparin Sodium 40 mg 02/22/19 22:00 02/24/19 21:30 Lovenox SUB-Q 40 mg QDAY@2200 CHICHO Administration Famotidine 10 mg 02/20/19 22:00 02/24/19 21:30 Pepcid PO 10 mg BID CHICHO Administration Guaifenesin 10 ml 02/22/19 10:05 02/22/19 21:24 Guaifenesin Dm Syrup PO 10 ml Q4H PRN Administration Cough Ceftriaxone Sodium 2 gm in 100 mls @ 200 mls/hr 02/20/19 15:00 02/24/19 09:37 Rocephin/Ns 2 Gm/100 Ml IV 200 mls/hr Q24HR CHICHO Administration Protocol Sodium Chloride 1,000 mls @ 42 mls/hr 02/20/19 17:00 02/23/19 21:48 Nacl 0.45% 1000 Ml IV 42 mls/hr DIRECT CHICHO Administration Insulin Human Lispro 0 unit 02/20/19 22:00 02/24/19 17:25 Humalog SUB-Q 3 unit ACHS CHICHO Administration Protocol Lisinopril 20 mg 02/21/19 10:00 02/24/19 09:37 Zestril PO 20 mg QDAY CHICHO Administration Meclizine HCl 25 mg 02/20/19 16:04 02/22/19 01:20 Antivert PO 25 mg TID PRN Administration Vertigo Ondansetron HCl 4 mg 02/20/19 16:02 Zofran IV Q8H PRN Nausea And Vomiting Sodium Chloride 10 ml 02/20/19 22:00 02/24/19 21:30 Sodium Chloride Flush Syringe 10 Ml IV 10 ml BID CHICHO Administration Sodium Chloride 10 ml 02/20/19 16:02 Sodium Chloride Flush Syringe 10 Ml IV PRN PRN LINE FLUSH Triamterene/HCTZ 1 each 02/21/19 10:00 02/24/19 09:41 Maxzide-25 PO 1 each QAM CHICHO Administration Nutrition/Malnutrition Assess - Dietary Evaluation Nutrition/Malnutrition Findings: Nutrition Notes Start: 02/21/19 14:17 Freq: Status: Active Protocol: Document 02/24/19 16:51 RM (Rec: 02/24/19 16:55 RM [id number]) Nutrition Notes Initial or Follow up Reassessment Current Diagnosis Diabetes,Hypertension Other Pertinent Diagnosis SIRS, Pneu Current Diet Cardiac Labs/Tests No recent labs Pertinent Medications Reviewed Height 5 ft 2 in Weight 45.35 kg [place] Body Weight (kg) 50.00 BMI 18.3 Subjective/Other Information Pt and pt daughter in room at time of visit. Pt daughter stated that pt eats 3 meals ie : two bowls of soup brought from home and 50% of the facility meals. Also stated that she sometimes drinks the Ensure Clear. Percent of energy/protein needs met: 100%/100% Burn Absent Trauma Absent #1 Nutrition Diagnosis Malnutrition Diagnosis Progress(for reassessment Continues documentation) Is patient on ventilator? No Is Patient Ambulatory and/or Out of Bed No REE-([place] Jeor-confined to bed) 1094.664 Kcal/Kg value to use for calculation 31 Approximate Energy Requirements Using 1406 kcal/Kg Calculation Used for Recommendations Kcal/kg Additional Notes Protein Needs: 54-68g (1.2-1. 5g/kg) Fluid Needs: 1 ml/kcal Nutrition Intervention Change Diet Order: Cardiac/Consistent CHO Add Supplement/Snack (indicate name/kcal Ensure Clear 1 daily /protein ) Provides kCal: 240 Provides Protein (gm) 8 Goal #1 Continue to meet at least 75% of calorie and protein needs via PO and ONS intakes Goal #2 Wt gain/maintenance Follow-Up By: 03/03/19 Additional Comments Follow for PO and ONS intakes
[2019-02-24] MEDS: NACL 0.45% 1000 ML 1,000 ML IV SCH (22:19)
[2019-02-25] MEDS: HumaLOG SUB-Q SCH ×2 (08:25→12:15)
[2019-02-25 08:33] VITALS: BP 165/77
--- NOTE | 2019-02-25 09:29 | Discharge Summary ---
Providers - Providers Date of Admission: 02/20/19 16:02 Attending physician: NICANOR WALLS MD 02/20/19 20:03 Physical Therapy Evaluation and Treat [CONS] Routine Comment: Reason For Exam: weakness 02/23/19 15:04 Consult to Dietitian/Nutrition [CONS] Routine Physician Instructions: Reason For Exam: Reason for Consult: Malnutrition Hospitalization Reason for admission: Pneumonia, shoulder pain Condition: Stable Pertinent studies: CT chest Patchy consolidation in both lungs consistent with pneumonia. Trace amount of left pleural fluid. Nonspecific enlarged mediastinal lymph nodes. Follow-up imaging recommended. Left upper extremity CT IMPRESSION: No acute or focal abnormalities of the left shoulder are visualized.. Patchy alveolar densities seen scattered in the left lung as described may represent infiltrates. Correlation with clinical presentation recommended. Hospital course: 73 YO Male with HTN, DM, Severe Malnutrition presents to ED for evaluation. Pt has experienced progressive weakness, fever. In addition, the patient requires increased assistance with activities of daily living. EMS notified, and upon arrival the patient was found to be in distress and transported to [facility]. Pt seen and evaluated in ED and found to have Left Lower Lobe Pneumonia, SIRS, Hyponatremia, Severe Malnutrition. Pt admitted to [facility] and initiated on Pneumonia protocol. No prior admissions for review. Patient is admitted to the floor and was managed for this, hyponatremia, severe malnutrition and patient showed improvement. Patient was given IV antibiotics/was in the hospital and was discharged with by mouth antibiotics. Patient is asking for pain medicine and was given tramadol. Patient is hemodynamically stable at the time of discharge. Patient doesn't speak Syriac and she requested her daughter to interpret for her. Patient verbalized she understood the management plan. Patient was hemodynamically stable at the time of discharge. I have advised her to up with her primary care doctor for repeat CT and daughter said she would make arrangement for that. Disposition: DC-01 TO HOME OR SELFCARE Time spent for discharge: 32 minutes - Discharge Diagnoses (1) Pneumonia Status: Acute (2) Severe malnutrition Status: Acute Core Measure Documentation - Palliative Care Palliative Care/ Comfort Measures: Not Applicable - Core Measures Any of the following diagnoses?: none Exam - Physical Exam Narrative exam: Not in cardiopulmonary distress. The patient is cachectic. Vital signs as documented. Head exam is unremarkable. No scleral icterus . Neck is without jugular venous distension, thyromegaly, or carotid bruits. Lungs are clear to auscultation. Cardiac exam reveals regular rate and Rhythm. Abdominal exam reveals normal bowel sounds. Extremities are nonedematous. DOCK ASSOCIATE: Alert and oriented 3. No focal weakness. - Constitutional Vitals: Temp Pulse Resp BP Pulse Ox 98.8 F 80 18 165/77 95 02/25/19 07:49 02/25/19 07:49 02/25/19 07:49 02/25/19 07:49 02/25/19 08:19 Plan Activity: no restrictions Weight Bearing Status: Full Weight Bearing Diet: regular Follow up with: KELLIE MEDINA [Other] - 7 Days Prescriptions: cefUROXime [Ceftin] 250 mg PO Q12H #10 tablet Amlodipine Besylate [Norvasc] 10 mg PO DAILY #60 tablet Benzonatate [Tessalon Perles] 100 mg PO Q8HR PRN #20 capsule PRN Reason: Cough traMADol [Ultram 50 MG tab] 50 mg PO Q6HR PRN #20 tablet PRN Reason: Pain
[2019-02-25] MEDS: ROCEPHIN/NS 2 GM/100 ML 2 GM/100 ML BAG IV SCH (09:54)
[2019-02-25] MEDS: ZESTRIL PO SCH (09:57)
[2019-02-25] MEDS: MAXZIDE-25 PO SCH (09:57)
[2019-02-25] MEDS: NORVASC PO SCH (09:57)
[2019-02-25] MEDS: PEPCID PO SCH (09:58)
[2019-02-25] MEDS: SODIUM CHLORIDE FLUSH SYRINGE 10 ML IV SCH (09:58)
[2019-02-25] MEDS ORDERED: ZITHROMAX PO SCH (10:00)
[2019-02-25 23:40] LABS: Albumin 3.1 g/dL (3.8-4.8); Gamma Globulin 1.8 g/dL (0.8-1.7)
== END 2019-02-25 12:15 | disposition home or self-care (01) | DRG 871 ==
LOC: ED 13:34 → 2B-ACE 16:02
PROVIDERS: ADMIT Internal Medicine; ATTEND Internal Medicine
DX: A41.9 Sepsis, unspecified organism (principal); E43 Unspecified severe protein-calorie malnutrition; J18.1 Lobar pneumonia, unspecified organism; C90.00 Multiple myeloma not having achieved remission; E87.1 Hypo-osmolality and hyponatremia; Z68.1 Body mass index [BMI] 19.9 or less, adult; J98.11 Atelectasis; G89.29 Other chronic pain; I10 Essential (primary) hypertension; E11.9 Type 2 diabetes mellitus without complications; M13.812 Other specified arthritis, left shoulder; Z79.84 Long term (current) use of oral hypoglycemic drugs
CPT/HCPCS: 36415; 70450; 71045; 71250; 80048; 80053; 81001; 82140; 82232; 82247; 82248; 82550; 82962; 83735; 84165; 84166; 84484; 85007; 85025; 85610; 85730; 86334; 87040; 87086; 93005; 93010; 93306; 94760; 96365; 96375; 99284; G0378; J0456; J0696; J1650; J1815; J7030; J7050; Q9967